=== PATIENT | male | born 1960 | race Caucasian/White ===

== ENCOUNTER 2020-08-08 18:33 | Emergency (ER) | payer OTHER, SELFPAY ==
[2020-08-08 19:15] VITALS: BP 125/68; PULSE 81; RESP 18; TEMP 36.6; O2SAT 97; BMI 35.7
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
[2020-08-08] MEDS: Ketorolac Tromethamine 60 MG/2 ML VIAL IM (20:44)
== END 2020-08-08 21:15 | disposition home or self-care (01) ==
PROVIDERS: Emergency Provider Internal Medicine; PCP Internal Medicine
DX: S13.4XXA Sprain of ligaments of cervical spine, initial encounter (principal); V43.52XA Car driver injured in collision with other type car in traffic accident, initial encounter; Y93.89 Activity, other specified; Y92.414 Local residential or business street as the place of occurrence of the external cause; Y99.9 Unspecified external cause status; I10 Essential (primary) hypertension; E78.00 Pure hypercholesterolemia, unspecified
CPT/HCPCS: 96372; 99284; J1885

== ENCOUNTER 2020-09-17 01:55 | Emergency (ER) | payer OTHER, SELFPAY ==
[2020-09-17 02:09] VITALS: BP 149/70; PULSE 72; RESP 16; TEMP 36.6; O2SAT 98; BMI 35.7
--- NOTE | 2020-09-17 03:01 | ED.GENADULT ---
HPI - General Adult General Chief complaint: General Medical Stated complaint: pain in back left side, swollen Time Seen by Provider: 09/17/20 02:59 Source: patient Mode of arrival: ambulatory History of Present Illness HPI narrative: 60-year-old male who presents with left-sided back pain without radiation into the leg that has been worsening since yesterday and states that it is atraumatic. He denies any bowel or bladder dysfunction and denies any saddle anesthesia symptoms. Patient states that once he gets out of bed and walks for a little while the back pain tends to improve. Otherwise, he denies any fever, chills, nausea, vomiting, diarrhea. Related Data Previous Rx's Medication Instructions Recorded CPAP full face mask small 12 cm #1 ea 07/26/20 humidified air cyclobenzaprine 5 mg PO TID PRN #12 tab 08/08/20 metoprolol succinate 25 mg 25 mg PO DAILY 90 Days #90 tab 08/20/20 tablet,extended release 24 hr naproxen 500 mg tablet,delayed 500 mg PO BID PRN 90 Days #60 tab 08/20/20 release simvastatin 5 mg tablet 5 mg PO BEDTIME 90 Days #90 tab 08/20/20 cyclobenzaprine 10 mg PO BEDTIME PRN #3 tab 09/17/20 ketorolac 10 mg PO Q6H PRN 5 Days #20 tab 09/17/20 Allergies Allergy/AdvReac Type Severity Reaction Status Date / Time No Known Allergies Allergy Unverified 12/16/19 16:11 [No Known Allergies*] Review of Systems Review of Systems: Pertinent positives and negatives as stated in HPI and 10 point review of systems is otherwise negative. [facility] Past Medical History Source: nursing notes reviewed Medical History Carpal tunnel syndrome Diverticulitis Hypercholesterolemia Obesity (BMI 30-39.9) Obstructive sleep apnea hypopnea, severe Social History Social History Advance Directives: No Advance Directives Information Provided: No Physical Exam Vital Signs: Vital Signs: Last Vital Signs Temp 97.9 F 09/17/20 02:09 Pulse 72 09/17/20 02:09 Resp 16 09/17/20 02:09 BP 149/70 H 09/17/20 02:09 Pulse Ox 98 09/17/20 02:09 Body Mass Index 35.7 VITAL SIGNS: Reviewed. GENERAL: Well developed, well nourished, in no acute distress. HEAD: Normocephalic/atraumatic EYES: PERRLA, EOMI OROPHARYNX: no oral lesions noted, posterior pharynx clear LUNGS: Normal breath sounds. No adventitious sounds or accessory muscle use. SpO2<98> CARDIOVASCULAR: Regular rate and rhythm without noted murmurs ABDOMEN: Obese, Soft, mild tenderness at left flank and posterior back, non-distended with bowel sounds, no CVA tenderness NEUROLOGIC: Alert and oriented x 4. Course Course Course Narrative: This is a 60-year-old male with history and clinical presentation most consistent with likely back pain and there is no evidence to suggest diverticulitis, renal colic. Patient will be provided with combination analgesics as well as lidocaine patch and Flexeril and re-evaluated. Of all investigations and on re-evaluation there are no acute findings and patient reports symptomatic improvement of his pain and now is able to move easier. He was discharged and instructed to follow-up with his primary care doctor on Friday morning. Medical Decision Making Lab Data Labs: Lab Results 09/17/20 Range/Units 03:10 Urine Color YELLOW Urine Appearance CLEAR Urine pH 6.0 (5.0-8.0) Ur Specific [place] 1.020 (1.005-1.025) Urine Protein NEG (NEG-TRACE) MG/DL Urine Glucose (UA) NEG (NEG) MG/DL Urine Ketones NEG (NEG) MG/DL Urine Blood NEG (NEG) Urine Nitrite NEG (NEG) Ur Leukocyte Esterase NEG (NEG) Discharge Plan Discharge Clinical Impression: Back pain Patient Disposition: Home, Self-Care Instructions: Back Pain (ED), Lower Back Exercises (ED) Additional Instructions: 1. Tylenol 1000 mg, orally, every 6 hours as needed for pain control. Do not exceed 4000 mg within 24 hours. 2. Lidocaine patch, these are available [id number] and should be placed on area of maximal tenderness as directed on the outside packaging. 3. Please follow-up with your primary care provider in the next 2-3 days for re-evaluation. Return to the ER for acute worsening of symptoms. Prescriptions: New ketorolac 10 mg tablet 10 mg PO Q6H PRN (Reason: pain) 5 Days Qty: 20 RF: 0 cyclobenzaprine 10 mg tablet 10 mg PO BEDTIME PRN (Reason: muscle spasm) Qty: 3 RF: 0 No Action simvastatin 5 mg tablet 5 mg PO BEDTIME 90 Days Qty: 90 RF: 1 metoprolol succinate 25 mg tablet extended release 24 hr 25 mg PO DAILY 90 Days Qty: 90 RF: 1 naproxen [EC-Naproxen] 500 mg tablet,delayed release (DR/EC) 500 mg PO BID PRN (Reason: pain) 90 Days Qty: 60 RF: 0 cyclobenzaprine 5 mg tablet 5 mg PO TID PRN (Reason: muscle spasm) Qty: 12 RF: 0 (DME) CPAP full face mask small 12 cm humidified air See Rx Instructions .ROUTE .MEDSUPPLY Qty: 1 RF: 0 Referrals: Po,Alejandro Beverly MD [Primary Care Provider] - 2 days
[2020-09-17] MEDS: Cyclobenzaprine HCl 10 MG TABLET PO (03:11)
[2020-09-17] MEDS: Acetaminophen 325 MG TABLET 975 MG PO (03:11)
[2020-09-17] MEDS: Ketorolac Tromethamine 15 MG/ML VIAL IM (03:11)
[2020-09-17 03:31] LABS: Glucose Urine UA NEG (NEG); Leukocyte Esterase Urine NEG (NEG); Nitrite Urine NEG (NEG); Urine Blood NEG (NEG); Urine Ketones NEG (NEG); Urine Protein NEG (NEG-TRACE)
[2020-09-17 03:36] LABS: Appearance Urine CLEAR; Color Urine YELLOW
[2020-09-17] MEDS: Lidocaine 4 % Patch ADH..PATCH 1 PATCH TRANSDERMA (03:36)
== END 2020-09-17 03:55 | disposition home or self-care (01) ==
PROVIDERS: Emergency Provider Student in an Organized Health Care Education/Training Program; PCP Internal Medicine
DX: M54.9 Dorsalgia, unspecified (principal)
CPT/HCPCS: 81003; 96372; 99283; 99284; J1885

== ENCOUNTER 2021-02-03 09:47 | Outpatient (REF) | payer OTHER, SELFPAY ==
[2021-02-03 09:56] LABS: MANUAL DIFF FLAG NO
[2021-02-03 10:53] LABS: Basophils Absolute Auto 0.1 X10*3/uL (0.0-0.2); Basophils Percent Auto 0.8 % (0-2); Eosinophils Absolute Auto 0.4 X10*3/uL (0.0-0.4); Hematocrit 43.8 % (42.0-52.0); Hemoglobin 15.2 g/dl (14.0-18.0); Imm Gran Abs Auto 0.02 X10*3/uL (0.00-0.03); Imm Gran Pct Auto 0.3 % (0.0-0.4); Lymphocytes Absolute Auto 1.1 X10*3/uL (1.2-4.9); Lymphocytes Percent Auto 18.2 % (20-40); Mean Corpuscular HGB Conc 34.7 g/dl (31.0-36.0); Mean Corpuscular Hemoglobin 32.3 pg (27.0-33.0); Mean Platelet Volume 10.1 fL (9.4-12.4); Monocytes Absolute Auto 0.5 X10*3/uL (0.1-1.2); Monocytes Percent Auto 8.7 % (2-11); Neutrophils Absolute Auto 3.9 x10*3/uL (2.0-8.3); Platelet Count 231 X10*3/uL (160-400); Red Blood Count 4.71 X10*6/uL (4.60-5.80); Red Cell Distribution Width 12.3 % (11.0-16.0)
[2021-02-03 10:59] LABS: Alanine Aminotransferase 22 U/L (0-40); Albumin Level 4.1 g/dL (3.5-5.0); Alkaline Phosphatase 92 U/L (39-117); Anion Gap 13 (12-20); Aspartate Amino Transferase 18 U/L (5-37); Bilirubin Total 0.9 mg/dL (0.0-1.0); Blood Urea Nitrogen 13 mg/dL (9-16); Calcium 9.1 mg/dL (8.4-10.2); Carbon Dioxide 27 mmol/L (22-29); Chloride 104 mmol/L (96-108); Cholesterol 182 mg/dL; Estimated Glomerular Filt Rate > 60; Glucose Random 93 mg/dL (60-115); HDL Cholesterol 45 mg/dL; LDL Cholesterol Calculated 120 mg/dl; Potassium 4.6 mmol/L (3.3-5.1); Sodium 139 mmol/L (135-145); Total Protein 7.1 g/dL (6.5-8.0); Triglycerides 86 mg/dL
[2021-02-03 11:21] LABS: Free T4 (Free Thyroxine) 0.88 ng/dL (0.71-1.85); Prostate Specific Antigen Scr 2.59 ng/mL (<0.05-4.0); Thyroid Stimulating Hormone 1.23 uIU/mL (0.32-4.0)
[2021-02-05 09:51] LABS: Folate 16.7 ng/mL (> or = 4.0); Vitamin B12 522 pg/mL (200-900)
== END 2021-02-03 09:48 | disposition home or self-care (01) ==
LOC: HO.LAB 09:47
PROVIDERS: PCP Internal Medicine; Visit Provider Internal Medicine
DX: Z12.5 Encounter for screening for malignant neoplasm of prostate (principal); E78.00 Pure hypercholesterolemia, unspecified
CPT/HCPCS: 36415; 80053; 80061; 82607; 82746; 84153; 84439; 84443; 85025

== ENCOUNTER 2021-04-30 13:07 | Outpatient (REF) | payer OTHER, SELFPAY ==
--- NOTE | ~2021-04-30 | XR_ITS ---
EXAMINATION: XR CERVICAL SPINE XR KUB XR LEFT-SIDED RIBS CLINICAL INFORMATION: Unspecified abdominal pain COMPARISON: Cervical spine done on 12/10/2015. TECHNIQUE: 3 views of the cervical spine, single frontal view of the abdomen and pelvis and frontal view of the chest and left hemithoracic rib series were obtained. FINDINGS: CERVICAL SPINE: The heights of the cervical vertebrae are well-maintained. Moderate degenerative multilevel disc disease related changes are noted at C4-C7 vertebral body level, similar to prior study. The C1-C2 alignment is intact. The prespinal soft tissues are unremarkable. Ligamentous nuchae calcification is seen. Visualized lung apices appear clear. Overall, no significant change since prior study dated 12/10/2015. KUB: There is a radiopaque BB marker identified at the left upper quadrant overlying left 10th rib. Nonspecific bowel gas pattern is noted. No abnormal soft tissue mass or calcification is seen. Mild thoracolumbar dextroscoliosis and multilevel degenerative spondylosis related changes are noted within the visualized thoracolumbar spine. CHEST AND LEFT HEMITHORACIC RIBS: Both lung jacobo are symmetrically expanded and appear clear. The cardiac mediastinal silhouette is within normal limit. No evidence of any pleural effusion or pneumothorax. Specifically, left hemithoracic rib series shows no evidence of any displaced fracture or subluxation. The site of the pain as was pointed out by the patient was marked with a cutaneous BB marker corresponding to the posterolateral aspect of the left 10th rib. No underlying suspicious focal lesion. Incidental note is made of degenerative changes the left shoulder. The soft tissues are unremarkable. XR/XR ribs LT min 3V w CXR1V IMPRESSION: 1. The cervical spine appears stable since most recent prior study dated 12/10/2015. 2. The KUB shows no radiographic evidence of radiopaque calculi are abnormal gallbladder distention or dilatation. 3. The radiograph of the chest and left hemithoracic rib shows no evidence of any focal osseous abnormality involving the site of pain which was marked with a cutaneous BB marker corresponding to the left 10th rib. Incidental note is made of degenerative changes at the left shoulder.
== END 2021-04-30 13:08 | disposition home or self-care (01) ==
LOC: HO.XRAY 13:07
PROVIDERS: PCP Internal Medicine; Visit Provider Internal Medicine
DX: R10.9 Unspecified abdominal pain (principal)
CPT/HCPCS: 71101; 72040; 74018

== ENCOUNTER 2022-03-27 07:36 | Outpatient (REF) | payer OTHER, SELFPAY ==
[2022-03-27 07:48] LABS: MANUAL DIFF FLAG NO
[2022-03-27 08:12] LABS: Basophils Absolute Auto 0.1 X10*3/uL (0.0-0.2); Eosinophils Absolute Auto 0.3 X10*3/uL (0.0-0.4); Eosinophils Percent Auto 5.8 % (0-4); Hematocrit 43.8 % (42.0-52.0); Hemoglobin 14.9 g/dl (14.0-18.0); Imm Gran Abs Auto 0.02 X10*3/uL (0.00-0.03); Imm Gran Pct Auto 0.4 % (0.0-0.4); Lymphocytes Absolute Auto 1.1 X10*3/uL (1.2-4.9); Lymphocytes Percent Auto 20.8 % (20-40); Monocytes Absolute Auto 0.4 X10*3/uL (0.1-1.2); Monocytes Percent Auto 8.5 % (2-11); Neutrophils Absolute Auto 3.3 x10*3/uL (2.0-8.3); Neutrophils Percent Auto 63.5 % (45-73); Platelet Count 213 X10*3/uL (160-400); Red Blood Count 4.66 X10*6/uL (4.60-5.80); Red Cell Distribution Width 12.8 % (11.0-16.0); White Blood Count 5.2 X10*3/uL (4.8-10.8)
[2022-03-27 09:17] LABS: Alanine Aminotransferase 22 U/L (0-40); Albumin Level 3.9 g/dL (3.5-5.0); Alkaline Phosphatase 98 U/L (39-117); Anion Gap 9 (12-20); Aspartate Amino Transferase 14 U/L (5-37); Bilirubin Total 0.6 mg/dL (0.0-1.0); Blood Urea Nitrogen 18 mg/dL (9-16); Carbon Dioxide 28 mmol/L (22-29); Chloride 106 mmol/L (96-108); Cholesterol 199 mg/dL; Estimated Glomerular Filt Rate > 60; Free T4 (Free Thyroxine) 0.89 ng/dL (0.71-1.85); Glucose Random 98 mg/dL (60-115); HDL Cholesterol 40 mg/dL; LDL Cholesterol Calculated 138 mg/dl; Potassium 4.2 mmol/L (3.3-5.1); Prostate Specific Antigen Scr 2.05 ng/mL (<0.05-4.0); Sodium 139 mmol/L (135-145); Thyroid Stimulating Hormone 1.69 uIU/mL (0.32-4.0); Total Protein 6.7 g/dL (6.5-8.0); Triglycerides 109 mg/dL
[2022-03-27 09:28] LABS: Folate 13.3 ng/mL (> or = 4.0); Vitamin B12 419 pg/mL (200-900)
== END 2022-03-27 07:37 | disposition home or self-care (01) ==
LOC: HO.LAB 07:36
PROVIDERS: PCP Internal Medicine; Visit Provider Internal Medicine
DX: Z12.5 Encounter for screening for malignant neoplasm of prostate (principal); I10 Essential (primary) hypertension; E78.00 Pure hypercholesterolemia, unspecified
CPT/HCPCS: 36415; 80053; 80061; 82607; 82746; 84153; 84439; 84443; 85025

== ENCOUNTER → 2022-04-23 08:50 | Outpatient (REF) | payer OTHER, SELFPAY ==
--- NOTE | 2022-04-23 08:53 | CA_ITS ---
Acquisition Time: 2022-04-23 08:59:22 Total Exercise Time: 00:07:30 Test Indications: R07.9 Chest Pain Medications: See H Protocol: LUIS Max HR: 169 BPM 104% of Pred: 161 BPM Max BP: 184/078 mmHG Max Work Load: 9.1 METS Exercise stress test with exercise 7 min 30 sec of Luis protocol, achieving 104% MPHR, without anginal symptoms, without arrythmia, with normotensive response to exercise, without EKG changes meeting criteria for ischemia. Test reviewed with Dr Jackman. Referred By: Alejandro Villarreal Overread By: MARTINE OSEI
== END ==
LOC: HO.CARD 08:50
PROVIDERS: PCP Internal Medicine; Visit Provider Internal Medicine
DX: R07.89 Other chest pain (principal)
CPT/HCPCS: 93017

== ENCOUNTER 2022-09-04 08:21 | Day surgery (SDC) | payer OTHER, SELFPAY ==
--- NOTE | 2022-09-03 13:53 | HO.ANESPROP2 ---
Documented by User: Cyndi Keller NP 09/03/22 13:55 HPI - Anesthesia Eval Consult details Narrative: 62yo M for Colonoscopy PMFSH Active Problems Active Problems: All Active Problems (Updated 08/12/22 @ 16:23 by Alejandro Villarreal MD) Plantar fasciitis of right foot (Acute) Tinea pedis (Acute) Chest heaviness (Acute) Family history of colon cancer (Acute) Radicular pain in left arm (Acute) Left flank pain (Acute) Annual physical exam (Acute) Hypertension (Acute) Hypercholesterolemia (Acute) Obstructive sleep apnea hypopnea, severe (Acute) Obesity (BMI 30-39.9) (Acute) Past Medical History Medical History (Updated 09/04/22 @ 11:09 by Татьяна Johnston, RN) Back pain Carpal tunnel syndrome Diverticulitis HTN (hypertension) Hypercholesterolemia Obesity (BMI 30-39.9) Obstructive sleep apnea hypopnea, severe Family History Family History (Updated 02/11/22 @ 15:36 by Alejandro Villarreal MD) Father Colon cancer CAD (coronary artery disease) Surgical History Surgical History (Updated 09/04/22 @ 11:09 by Татьяна Johnston RN) Hx of colonoscopy Social History Social History (Updated 02/09/21 @ 16:30 by Alejandro Villarreal MD) Housing: House Alcohol intake: never Patient Tobacco Use Status: Never used Tobacco e-Cigarette/Vaping Use: Never Used Second Hand Smoke Exposure: No Use of substances other than those prescribed or required for medical reasons: No Are you DNR?: No Advance Directives: No Advance Directives Information Provided: Yes service: No Current occupational status: employed Current occupational exposures/hazards: No Cognitive needs: No Hearing needs: No Vision needs: No Meds Allergies Allergy/AdvReac Type Severity Reaction Status Date / Time No Known Allergies Allergy Verified 09/04/22 11:09 [No Known Allergies*] Exam Exam Date and Time: September 03, 2022 1353 Pertinent Lab Results Pertinent Lab Results: Laboratory Tests 03/27/22 03/27/22 07:46 07:46 WBC 5.2 Hgb 14.9 Hct 43.8 Plt Count 213 Sodium 139 Potassium 4.2 Chloride 106 Carbon Dioxide 28 BUN 18 H Creatinine 0.85 Narrative Narrative: Exercise Stress 03/2022 Protocol: SEAN ? Max HR: 169 BPM? 104% of? Pred: 161 BPM Max BP: 184/078 mmHG Max Work Load: 9.1 METS ? Exercise stress test with exercise 7 min 30 sec of Sean protocol, achieving ?104% MPHR, without anginal symptoms, without arrythmia, with normotensive ?response to exercise, without EKG changes meeting criteria for ischemia. Test ?reviewed with Dr Jackman. Assessment and Plan Assessment Anesthesia Assessment: Chart Reviewed Documented by User: Sara Kothari MD 09/04/22 12:20 HPI - Anesthesia Eval Consult details Narrative: 62yo M for Colonoscopy screening [facility] Past Medical History Medical History (Updated 09/04/22 @ 11:09 by Татьяна Johnston RN) Back pain Carpal tunnel syndrome Diverticulitis HTN (hypertension) Hypercholesterolemia Obesity (BMI 30-39.9) Obstructive sleep apnea hypopnea, severe Family History Family History (Updated 02/11/22 @ 15:36 by Alejandro Villarreal MD) Father Colon cancer CAD (coronary artery disease) Family history of problems with anesthesia: No Surgical History Surgical History (Updated 09/04/22 @ 11:09 by Татьяна Johnston RN) Hx of colonoscopy History of Problems with Anesthesia: No Social History Social History (Updated 02/09/21 @ 16:30 by Alejandro Villarreal MD) Housing: House Alcohol intake: never Patient Tobacco Use Status: Never used Tobacco e-Cigarette/Vaping Use: Never Used Second Hand Smoke Exposure: No Use of substances other than those prescribed or required for medical reasons: No Are you DNR?: No Advance Directives: No Advance Directives Information Provided: Yes service: No Current occupational status: employed Current occupational exposures/hazards: No Cognitive needs: No Hearing needs: No Vision needs: No Meds Allergies Allergy/AdvReac Type Severity Reaction Status Date / Time No Known Allergies Allergy Verified 09/04/22 11:09 [No Known Allergies*] Exam Airway Mallampati Class: III TM Dist: <=3cm Neck ROM: Full Loose/Missing/Broken Teeth: No Heart: rr Lungs: cta Assessment and Plan Assessment Anesthesia Assessment: Anesthesia Plan Discussed Final Anesthetic Review Family History of Problems with Anesthesia: No History of Problems with Anesthesia: No NPO: Yes ASA Class: III Final Preanesthetic Review: No Changes in Pt Med Stat, Meds/Allgs Chart Reviewed, Consent Obtained/Reviewed and Anes Risks/Benef Reviewed Patient Risk: Intermediate Procedure Risk: Low Anesthetic Plan Anesthetic Plan: MAC: Disposition: Standard PACU
[2022-09-04 11:10] VITALS: BMI 35.9
[2022-09-04 11:12] VITALS: BP 135/83; PULSE 70; RESP 15; TEMP 36.5; O2SAT 96
[2022-09-04] MEDS: Lactated Ringers 1,000 ML 100 ML IVCONT (11:23)
--- NOTE | 2022-09-04 12:37 | P.BOP_ITS ---
Brief Operative Note Date of Service: 09/04/22 Pre-op diagnosis: Screening Post-op diagnosis: other (Polyp) Procedure: Colonoscopy to the cecum and TI with Bx/removal of polyp Surgeon: Quinton Lacey Anesthesia: MAC Was an Hot Wort Settler used for this Procedure?: No Estimated blood loss (mL): 2.0 Pathology: other (A. Polyp at 15cm) Condition: stable Disposition: PACU
[2022-09-04 12:41] VITALS: BP 133/73; PULSE 75; RESP 16; TEMP 36.6; O2SAT 96
[2022-09-04 12:56] VITALS: BP 142/97; PULSE 60; RESP 14; O2SAT 97
[2022-09-04 13:08] VITALS: BP 142/88; PULSE 62; RESP 13; TEMP 36.4; O2SAT 99
--- NOTE | 2022-09-04 13:28 | OP_ITS ---
DATE OF SERVICE: 09/04/2022 SURGEON: Quinton Lacey MD INDICATIONS: The patient presents for evaluation of colorectal cancer screening and family history of colon cancer. Full consent has been obtained from him for this, including risks of bleeding and perforation. PREOPERATIVE DIAGNOSIS: Colorectal cancer screening. POSTOPERATIVE DIAGNOSIS: Colorectal cancer screening, small colon polyp, diverticulosis and internal hemorrhoids. PROCEDURE PERFORMED: Colonoscopy to cecum and terminal ileum with biopsy and removal of polyp. ESTIMATED BLOOD LOSS: COMPLICATIONS: ANESTHESIA: Monitored anesthesia care. ASSISTANTS: SPECIMENS: DESCRIPTION OF PROCEDURE: The patient was placed in the left lateral decubitus position. The digital rectal exam revealed no abnormalities. The [employer] video pediatric colonoscope was entered into the rectum advanced easily to the cecum. Once in the cecum I did identify normal-appearing cecal pouch with appendiceal orifice and a normal-appearing ileocecal valve. The terminal ileum was cannulated and appeared normal. The scope was withdrawn back in the colon. The entire cecum and ileocecal valve appeared normal. The scope was slowly withdrawn assessing all mucosal surfaces carefully. Preparation was excellent. At 15 cm was a flat approximately 3 or 4 mm polyp, which was biopsied and completely removed with cold biopsy forceps. I did not visualize any other polyps, colitis, nor angiodysplasia. There was a mild amount of sigmoid diverticulosis. In the rectum, scope was retroflexed visualizing internal hemorrhoids, but no other pathology. The rectal mucosa appeared normal. Scope was straightened and withdrawn the patient. He tolerated the procedure well and was returned to recovery area in stable condition. IMPRESSION: 1. Small colon polyp. 2. Diverticulosis. 3. Internal hemorrhoids. PLAN: The results of the biopsy will be checked. I would recommend a repeat colonoscopy in 5 years for further screening and surveillance given his family history of colon cancer. He will otherwise see me on a p.r.n. basis. Quinton Lacey MD RMImmanuel/ANNE MARIE / [id number] BELLA
== END 2022-09-04 13:30 | disposition home or self-care (01) ==
PROVIDERS: PCP Internal Medicine; Visit Provider Internal Medicine
PROC: 0DJD8ZZ Inspection of Lower Intestinal Tract, Via Natural or Artificial Opening Endoscopic (ICD-10-PCS; CPT 45378; principal; 2022-09-04 10:40)
DX: Z12.11 Encounter for screening for malignant neoplasm of colon (principal); Z80.0 Family history of malignant neoplasm of digestive organs; Z80.42 Family history of malignant neoplasm of prostate; K63.5 Polyp of colon; K57.30 Diverticulosis of large intestine without perforation or abscess without bleeding; K64.8 Other hemorrhoids; I10 Essential (primary) hypertension; E78.00 Pure hypercholesterolemia, unspecified; G47.33 Obstructive sleep apnea (adult) (pediatric); Z99.89 Dependence on other enabling machines and devices; Z79.899 Other long term (current) drug therapy
CPT/HCPCS: 45380; 88305

== ENCOUNTER 2023-02-07 07:29 | Outpatient (REF) | payer OTHER, SELFPAY ==
[2023-02-07 07:39] LABS: MANUAL DIFF FLAG NO
[2023-02-07 07:49] LABS: Basophils Percent Auto 0.8 % (0-2); Eosinophils Absolute Auto 0.3 X10*3/uL (0.0-0.4); Eosinophils Percent Auto 5.7 % (0-4); Hematocrit 44.1 % (42.0-52.0); Imm Gran Abs Auto 0.02 X10*3/uL (0.00-0.03); Imm Gran Pct Auto 0.4 % (0.0-0.4); Lymphocytes Absolute Auto 1.2 X10*3/uL (1.2-4.9); Lymphocytes Percent Auto 23.7 % (20-40); Mean Corpuscular Hemoglobin 31.3 pg (27.0-33.0); Mean Corpuscular Volume 92.1 fL (80.0-98.0); Mean Platelet Volume 9.4 fL (9.4-12.4); Monocytes Absolute Auto 0.5 X10*3/uL (0.1-1.2); Monocytes Percent Auto 9.8 % (2-11); Neutrophils Percent Auto 59.6 % (45-73); Platelet Count 243 X10*3/uL (160-400); Red Blood Count 4.79 X10*6/uL (4.60-5.80); Red Cell Distribution Width 12.6 % (11.0-16.0); White Blood Count 5.1 X10*3/uL (4.8-10.8)
[2023-02-07 08:19] LABS: Alanine Aminotransferase 25 U/L (0-40); Albumin Level 4.1 g/dL (3.5-5.0); Alkaline Phosphatase 94 U/L (39-117); Anion Gap 9 (12-20); Aspartate Amino Transferase 17 U/L (5-37); Bilirubin Total 0.8 mg/dL (0.0-1.0); Blood Urea Nitrogen 19 mg/dL (9-16); Calcium 8.9 mg/dL (8.4-10.2); Carbon Dioxide 29 mmol/L (22-29); Chloride 106 mmol/L (96-108); Cholesterol 165 mg/dL (<200); Estimated Glomerular Filt Rate > 60; Glucose Random 88 mg/dL (60-115); HDL Cholesterol 37 mg/dL (>40); LDL Cholesterol Calculated 113 mg/dL (<100); Potassium 3.9 mmol/L (3.3-5.1); Sodium 140 mmol/L (135-145); Total Protein 7.6 g/dL (6.5-8.0); Triglycerides 77 mg/dL (<150)
[2023-02-07 08:39] LABS: Free T4 (Free Thyroxine) 0.87 ng/dL (0.71-1.85); Thyroid Stimulating Hormone 1.07 uIU/mL (0.32-4.0)
[2023-02-07 08:45] LABS: Folate 12.7 ng/mL (> or = 4.0); Prostate Specific Antigen Scr 3.79 ng/mL (<0.05-4.0); Vitamin B12 468 pg/mL (200-900)
== END 2023-02-07 07:30 | disposition home or self-care (01) ==
LOC: HO.LAB 07:29
PROVIDERS: PCP Internal Medicine; Visit Provider Internal Medicine
DX: Z12.5 Encounter for screening for malignant neoplasm of prostate (principal); E78.00 Pure hypercholesterolemia, unspecified
CPT/HCPCS: 36415; 80053; 80061; 82607; 82746; 84153; 84439; 84443; 85025

== ENCOUNTER 2023-02-13 14:59 | Outpatient (AMB) | payer OTHER, SELFPAY ==
[2023-02-13 15:05] VITALS: BP 150/90; PULSE 80; O2SAT 98; BMI 36.3
--- NOTE | 2023-02-13 15:05 | A.OFFPC_ITS ---
Vital Signs 02/13/23 15:05 02/13/23 15:27 Height 5 ft 5 in Weight 218 lb BMI 36.3 BP 150/90 H 130/70 Blood Pressure Location Lt brachial Lt brachial Position Sitting Sitting Pulse 80 Pulse Source Pulse Oximeter Pulse Oximetry (%) 98 Oxygen Delivery Method Room Air Intake Visit Reasons: Annual Exam Freight Solicitor: Not Required per policy Accompanied by: Self / Same As Patient Allergies No Known Allergies [No Known Allergies*] Allergy (Verified 02/13/23 15:05) Medication List - Last Reconciled 02/13/23 by Alejandro Villarreal MD [CPAP full face mask small 12 cm humidified air As directed] ketorolac 10 mg PO Q6H PRN 5 days metoprolol succinate ER 25 mg PO DAILY 90 days simvastatin 5 mg PO BEDTIME 90 days Tobacco use date assessed: 08/12/22 Dental Screening Dental Screen Date: 02/13/23 Did you have a dental visit in the last 12 months?: Yes Did you have a dental problem in the last 6 months where you did not have access to dental care?: No Was dental information given to patient?: Patient has dentist HPI Annual Exam HPI Details 62-year-old obese male with hypertension hypercholesterolemia obstructive sleep apnea coming in for physical exam. Last seen in July 2022. Colonoscopy is up-to-date [facility] Medical History Back pain HTN (hypertension) Diverticulitis Hypercholesterolemia Obstructive sleep apnea hypopnea, severe Carpal tunnel syndrome Obesity (BMI 30-39.9) Surgical History Hx of colonoscopy Family History (Updated 02/13/23 @ 15:29 by Alejandro Villarreal MD) Father Colon cancer CAD (coronary artery disease) Paternal Aunt Colon cancer Social History Housing: House Alcohol intake: never Patient Tobacco Use Status: Never used Tobacco e-Cigarette/Vaping Use: Never Used Second Hand Smoke Exposure: No service: No Current occupational status: employed Current occupational exposures/hazards: No Cognitive needs: No Hearing needs: No Vision needs: No Questionnaire PHQ-9 Over the last 2 weeks, how often have you been bothered by any of the following problems? 1. Little interest or pleasure in doing things: not at all 2. Feeling down, depressed, or hopeless: not at all 3. Trouble falling or staying asleep, or sleeping too much: not at all 4. Feeling tired or having little energy: not at all 5. Poor appetite or overeating: not at all 6. Feeling bad about yourself - or that you are a failure or have let yourself or your family down: not at all 7. Trouble concentrating on things, such as reading the newspaper or watching television: not at all 8. Moving or speaking so slowly that other people could have noticed. Or the opposite - being so fidgety or restless that you have been moving around a lot more than usual: not at all 9. Thoughts that you would be better off or of hurting yourself in some way: not at all Total score: 0 Depression Screening Interpretation: Negative Depression Screening Done: Yes Source: Developed by Drs. Quinton Young, Estelle Carrillo, Raimundo Hunter and colleagues, with an educational debby from [employer]. Thrive Questionnaire Date Thrive assessed: 08/12/22 AUDIT C Alcohol Use Questionnaire (AUDIT-C) 1. How often do you have a drink containing alcohol?: Never 2. How many drinks containing alcohol do you have on a typical day when you are drinking?: 1 or 2 3. How often do you have six or more drinks on one occasion?: Never Total Score: 0 ZENY-7 AMB Questionnaire ZENY-7 Date ZENY - 7 assessed: 08/12/22 Source: Developed by Drs. Quinton Young, Estelle Carrillo, Raimundo Hunter and colleagues, with an educational debby from [employer]. Review of Systems Const Denies poor appetite and Denies weakness Eyes Denies no additional complaints ENT Reports Normal hearing present, Denies dizziness, Denies nasal congestion, Denies tinnitus and Denies sore throat Card Denies chest pain, Denies syncope, Denies rapid heart rate and Denies dyspnea Resp Denies cough and Denies dyspnea GI Denies change in stool character, Reports constipation, Denies diarrhea, Denies nausea and Denies vomiting Denies dysuria and Denies urinary frequency Neuro Reports Normal hearing present, Denies confusion, Denies dizziness, Denies syncope and Denies weakness Psych Denies confusion Physical exam (Primary Care) Vital Signs: Last Vital Signs Pulse 80 02/13/23 15:05 BP 150/90 H 02/13/23 15:05 Pulse Ox 98 02/13/23 15:05 Oxygen Delivery Method Room Air 02/13/23 15:05 BMI result Body Mass Index 36.3 Tobacco/Smoking Status: Tobacco use Status Tobacco use date assessed 08/12/22 02/13/23 15:06 Patient Tobacco Use Status Never used Tobacco 02/13/23 15:06 e-Cigarette/Vaping Use Never Used 02/13/23 15:06 PHQ-9: PHQ-9 Score PHQ-9: Total score 0 02/13/23 15:06 Depression Screening Interpretation: Negative Thrive Assessment: Date of Thrive Assessment Date Thrive assessed 08/12/22 02/13/23 15:06 Const General: No confusion Orientation/consciousness: No confusion HENMT Head: Yes normocephalic Ears: external ears normal and TM's normal bilaterally Face and sinus: Yes normal facial exam Mouth: moist mucous membranes Throat: Yes tonsils normal Eyes Conjunctivae: conjunctivae normal Pupils: Equal, round and reactive pupils present and Pupil accommodation reflex normal Direct Ophthalmoscopy: normal light reflex Neck Neck: No lymphadenopathy Thyroid: Thyroid normal Chest Chest palpation & inspection: normal inspection of the chest Resp Effort & Inspection: normal respiratory effort and no audible wheezes Auscultation: clear to auscultation bilaterally, no crackles, no wheezes and lung sounds not diminished Cardio Rate: regular rate Rhythm: regular rhythm Peripheral pulses: radial pulses present and dorsalis pedis present GI Palpation (GI): no masses Auscultation: normal bowel sounds and normoactive bowel sounds Rectal Exam - Male: Yes deferred Skin General skin exam: no rashes or lesions noted Rashes: no rashes Neuro General: No confusion Cranial nerves: Yes Equal, round and reactive pupils present and Yes Normal hearing present Cognition (Neuro): normal cognition Gait exam (Neuro): Normal gait present Motor exam (neuro): 5/5 motor strength present throughout Deep tendon reflexes (DTR's): Right brachioradialis reflex intensity grade: 2+, Left brachioradialis reflex intensity grade: 2+, Right patellar reflex intensity grade: 2+ and Left patellar reflex intensity grade: 2+ Extrem General: No edema Assessment and Plan Assessment & Plan (1) Annual physical exam: Code(s): Z00.00 - Encounter for general adult medical examination without abnormal findings (2) Hypertension: Code(s): I10 - Essential (primary) hypertension Plan: Continue with blood pressure medication. Decrease salt intake and exercise patient takes metoprolol 25 mg once a day (3) Hypercholesterolemia: Code(s): E78.00 - Pure hypercholesterolemia, unspecified Plan: Avoid fried foods, chicken skin, eggs, butter margarine, pastries and meat. Be it pork or beef they have a lot of cholesterol LDL goal of less than 130 and tr iglyceride of less than 150. Patient on simvastatin 5 mg once a day (4) Obstructive sleep apnea hypopnea, severe: Comment: On the CPAP and uses Q night > 4 hours and benefits from this Code(s): G47.33 - Obstructive sleep apnea (adult) (pediatric) Plan: Continue with CPAP more than 4 hours a night and benefits from the (5) Obesity (BMI 30-39.9): Code(s): E66.9 - Obesity, unspecified Plan: Diet and exercise (6) Family history of colon cancer: Code(s): Z80.0 - Family history of malignant neoplasm of digestive organs Plan: August 2022 colonoscopy hyperplastic but because of family history every 5 years (7) Tinea pedis: Code(s): B35.3 - Tinea pedis (8) Onychomycosis: Code(s): B35.1 - Tinea unguium Orders: Orders Liver Panel 1 Month B35.1 - Tinea unguium, R79.89 - Other specified abnormal findings of blood chemistry Medications: New terbinafine HCl 250 mg PO DAILY 12 weeks 84 tabs 1RF B35.1 - Tinea unguium terbinafine HCl 250 mg PO DAILY 12 weeks 84 tabs 0RF B35.1 - Tinea unguium miconazole nitrate 2% (Zeasorb AF) 1 appl topical BID 85 grams 4RF B35.3 - Tin ea pedis Refilled metoprolol succinate ER 25 mg PO DAILY 90 days 90 tabs 3RF I10 - Essential (primary) hypertension simvastatin 5 mg PO BEDTIME 90 days 90 tabs 3RF E78.00 - Pure hypercholesterolemia, unspecified ketorolac 10 mg PO Q6H PRN 20 tabs 3RF pain 5 days R10.9 - Unspecified abdominal pain Coding Level of Care Code Est Pt Prev Care 40-64y(67091) Diagnoses Annual physical exam Z00.00 Hypertension I10 Hypercholesterolemia E78.00 Obstructive sleep apnea hypopnea, severe G47.33 Obesity (BMI 30-39.9) E66.9 Family history of colon cancer Z80.0 Tinea pedis B35.3 Onychomycosis B35.1
[2023-02-13 15:27] VITALS: BP 130/70
== END 2023-02-13 16:19 | disposition home or self-care (01) ==
PROVIDERS: Visit Provider Internal Medicine
DX: Z00.00 Encounter for general adult medical examination without abnormal findings (principal); I10 Essential (primary) hypertension; E78.00 Pure hypercholesterolemia, unspecified; G47.33 Obstructive sleep apnea (adult) (pediatric); E66.9 Obesity, unspecified; Z80.0 Family history of malignant neoplasm of digestive organs; B35.3 Tinea pedis; B35.1 Tinea unguium; Z68.36 Body mass index [BMI] 36.0-36.9, adult
CPT/HCPCS: 99396

== ENCOUNTER 2023-05-16 15:46 | Outpatient (AMB) | payer OTHER, SELFPAY ==
[2023-05-16 15:52] VITALS: BP 130/88; PULSE 75; O2SAT 96; BMI 36.6
--- NOTE | 2023-05-16 15:52 | A.OFFPC_ITS ---
Vital Signs 05/16/23 15:52 Height 5 ft 5 in Weight 220 lb 0.4 oz BMI 36.6 BP 130/88 Blood Pressure Location Lt brachial Position Sitting Pulse 75 Pulse Source Pulse Oximeter Pulse Oximetry (%) 96 Oxygen Delivery Method Room Air Intake Visit Reasons: 3 month f/u Intake Note: Patient is here to follow up on 3 months Pollution Control Engineer Required: No Allergies No Known Allergies [No Known Allergies*] Allergy (Verified 02/13/23 15:05) Tobacco use date assessed: 05/16/23 Dental Screening Dental Screen Date: 05/16/23 Did you have a dental visit in the last 12 months?: Yes Did you have a dental problem in the last 6 months where you did not have access to dental care?: No Was dental information given to patient?: Patient has dentist HPI 3 month f/u HPI Details 62-year-old obese male with hypertension hypercholesterolemia obstructive sleep apnea coming in for follow-up last seen for physical in January 2023. [facility] Medical History Back pain HTN (hypertension) Diverticulitis Hypercholesterolemia Obstructive sleep apnea hypopnea, severe Carpal tunnel syndrome Obesity (BMI 30-39.9) Surgical History Hx of colonoscopy Family History (Updated 02/13/23 @ 15:29 by Alejandro Villarreal MD) Father Colon cancer CAD (coronary artery disease) Paternal Aunt Colon cancer Social History Housing: House Alcohol intake: never Patient Tobacco Use Status: Never used Tobacco e-Cigarette/Vaping Use: Never Used Second Hand Smoke Exposure: No service: No Current occupational status: employed Current occupational exposures/hazards: No Cognitive needs: No Hearing needs: No Vision needs: No Questionnaire Thrive Questionnaire Date Thrive assessed: 05/16/23 I am a: Patient What is your living situation today?: I have a steady place to live Within the past 12 months, did the food you bought not last and you didn't have the money to get more?: Never true Within the past 12 months, did you worry whether your food would run out before you got money to buy more?: Never true Do you have trouble paying for medicines?: No Do you have trouble getting transportation to medical appointments?: No Do you have trouble paying your heating and electricity bill?: No Do you have trouble taking care of your child, family member or friend?: No Do you have trouble with day-to-day activities such as bathing, preparing meals, shopping, managing finances, etc.?: No Are you currently unemployed and looking for a job?: No Are you interested in more education?: No Please select the resources that you would like help with: None THRIVE Score: 0 AUDIT C Alcohol Use Questionnaire (AUDIT-C) 1. How often do you have a drink containing alcohol?: Never 2. How many drinks containing alcohol do you have on a typical day when you are drinking?: 1 or 2 3. How often do you have six or more drinks on one occasion?: Never Total Score: 0 ZENY-7 AMB Questionnaire ZENY-7 Date ZENY - 7 assessed: 05/16/23 Source: Developed by Drs. Quinton Young, Estelle Carrillo, Raimundo Hunter and colleagues, with an educational debby from [employer]. Physical exam (Primary Care) Vital Signs: Last Vital Signs Pulse 75 05/16/23 15:52 BP 130/88 05/16/23 15:52 Pulse Ox 96 05/16/23 15:52 Oxygen Delivery Method Room Air 05/16/23 15:52 BMI result Body Mass Index 36.6 Tobacco/Smoking Status: Tobacco use Status Tobacco use date assessed 05/16/23 05/16/23 15:53 Patient Tobacco Use Status Never used Tobacco 05/16/23 15:53 e-Cigarette/Vaping Use Never Used 05/16/23 15:53 Thrive Assessment: Date of Thrive Assessment Date Thrive assessed 05/16/23 05/16/23 15:53 Const General: alert; No acute distress Eyes Conjunctivae: conjunctivae normal Resp Auscultation: clear to auscultation bilaterally Cardio Rate: regular rate Rhythm: regular rhythm GI Inspection: Yes normal to inspection Extrem General: Yes normal to inspection and No edema Assessment and Plan Assessment & Plan (1) Obesity (BMI 30-39.9): Code(s): E66.9 - Obesity, unspecified Plan: Diet and exercise with the patient that now that patient is stable with blood pressure and cholesterol we need him to lose the weight. Discussed about ways to lose weight with medication but would like to do with more naturally. Eat healthy keep active and advised to get the weight down even for just a small 1 but down. (2) Obstructive sleep apnea hypopnea, severe: Comment: On the CPAP and uses Q night > 4 hours and benefits from this Code(s): G47.33 - Obstructive sleep apnea (adult) (pediatric) Plan: Continue to use the CPAP more than 4 hours a night and benefits from this (3) Hypercholesterolemia: Code(s): E78.00 - Pure hypercholesterolemia, unspecified Plan: Avoid fried foods, chicken skin, eggs, butter margarine, pastries and meat. Be it pork or beef they have a lot of cholesterol LDL goal of less than 130 and triglyceride of less than 150. Patient is on simvastatin 5 mg once a day (4) Hypertension: Code(s): I10 - Essential (primary) hypertension Plan: Continue with blood pressure medication. Decrease salt intake and exercise metoprolol 25 mg once a day Medications: Refilled terbinafine HCl 250 mg PO DAILY 12 weeks 84 tabs 1RF B35.1 - Tinea unguium Coding Level of Care Code Est Pt Level 4 (91634) Diagnoses Obesity (BMI 30-39.9) E66.9 Obstructive sleep apnea hypopnea, severe G47.33 Hypercholesterolemia E78.00 Hypertension I10
== END 2023-05-16 16:23 | disposition home or self-care (01) ==
PROVIDERS: PCP Internal Medicine; Visit Provider Internal Medicine
DX: G47.33 Obstructive sleep apnea (adult) (pediatric) (principal); E78.00 Pure hypercholesterolemia, unspecified; E66.9 Obesity, unspecified; Z68.36 Body mass index [BMI] 36.0-36.9, adult; I10 Essential (primary) hypertension
CPT/HCPCS: 99214

== ENCOUNTER 2023-08-15 05:59 | Outpatient (REF) | payer OTHER, SELFPAY ==
[2023-08-15 08:45] LABS: Alanine Aminotransferase 28 U/L (0-40); Albumin Level 3.8 g/dL (3.5-5.0); Alkaline Phosphatase 79 U/L (39-117); Aspartate Amino Transferase 18 U/L (5-37); Bilirubin Direct 0.2 mg/dL (0.0-0.5); Bilirubin Total 0.5 mg/dL (0.0-1.0); Total Protein 6.8 g/dL (6.5-8.0)
== END 2023-08-15 06:00 | disposition home or self-care (01) ==
LOC: HO.LAB 05:59
PROVIDERS: PCP Internal Medicine; Visit Provider Internal Medicine
DX: R79.89 Other specified abnormal findings of blood chemistry (principal); B35.1 Tinea unguium
CPT/HCPCS: 36415; 80076

== ENCOUNTER 2023-08-19 15:59 | Outpatient (AMB) | payer OTHER, SELFPAY ==
[2023-08-19 16:05] VITALS: BP 160/90; PULSE 75; O2SAT 99; BMI 37.1
--- NOTE | 2023-08-19 16:05 | MHC.PC.OV ---
Vital Signs 08/19/23 16:05 08/19/23 16:29 Height 5 ft 5 in Weight 223 lb BMI 37.1 BP 160/90 H 132/80 Blood Pressure Location Lt brachial Lt brachial Position Sitting Sitting Pulse 75 Pulse Source Pulse Oximeter Pulse Oximetry (%) 99 Oxygen Delivery Method Room Air Intake Visit Reasons: 3mth f/u Medical Scientist Required: No Occupational Health Physiotherapist: Not Required per policy Accompanied by: Self / Same As Patient Allergies No Known Allergies [No Known Allergies*] Allergy (Verified 08/19/23 16:05) Tobacco use date assessed: 05/16/23 Dental Screening Dental Screen Date: 05/16/23 HPI 3mth f/u HPI Details 63-year-old obese male with a history of obstructive sleep apnea hypercholesterolemia hypertension last seen in May 2023. Patient is here for follow-up colonoscopy is up-to-date August 2022. L foot - stepped on a glass and was able to take it out but left with a white tender thickened skin ? foreign body PFSH Medical History Back pain HTN (hypertension) Diverticulitis Hypercholesterolemia Obstructive sleep apnea hypopnea, severe Carpal tunnel syndrome Obesity (BMI 30-39.9) Surgical History Hx of colonoscopy Family History (Updated 02/13/23 @ 15:29 by Alejandro Villarreal MD) Father Colon cancer CAD (coronary artery disease) Paternal Aunt Colon cancer Social History Housing: House Alcohol intake: never Patient Tobacco Use Status: Never used Tobacco e-Cigarette/Vaping Use: Never Used Second Hand Smoke Exposure: No service: No Current occupational status: employed Current occupational exposures/hazards: No Cognitive needs: No Hearing needs: No Vision needs: No Questionnaire PHQ-9 Over the last 2 weeks, how often have you been bothered by any of the following problems? 1. Little interest or pleasure in doing things: not at all 2. Feeling down, depressed, or hopeless: not at all 3. Trouble falling or staying asleep, or sleeping too much: not at all 4. Feeling tired or having little energy: not at all 5. Poor appetite or overeating: not at all 6. Feeling bad about yourself - or that you are a failure or have let yourself or your family down: not at all 7. Trouble concentrating on things, such as reading the newspaper or watching television: not at all 8. Moving or speaking so slowly that other people could have noticed. Or the opposite - being so fidgety or restless that you have been moving around a lot more than usual: not at all 9. Thoughts that you would be better off or of hurting yourself in some way: not at all Total score: 0 Depression Screening Interpretation: Negative Depression Screening Done: Yes Source: Developed by Drs. Quinton Young, Estelle Carrillo, Raimundo Hunter and colleagues, with an educational debby from [employer]. Thrive Questionnaire Date Thrive assessed: 05/16/23 ZENY-7 AMB Questionnaire ZENY-7 Date ZENY - 7 assessed: 05/16/23 Source: Developed by Drs. Quinton Young, Estelle Carrillo, Raimundo Hunter and colleagues, with an educational debby from [employer]. Physical exam (Primary Care) Vital Signs: Last Vital Signs Pulse 75 08/19/23 16:05 BP 132/80 08/19/23 16:29 Pulse Ox 99 08/19/23 16:05 Oxygen Delivery Method Room Air 08/19/23 16:05 BMI result Body Mass Index 37.1 Tobacco/Smoking Status: Tobacco use Status Tobacco use date assessed 05/16/23 08/19/23 16:06 Patient Tobacco Use Status Never used Tobacco 08/19/23 16:06 e-Cigarette/Vaping Use Never Used 08/19/23 16:06 PHQ-9: PHQ-9 Score PHQ-9: Total score 0 08/19/23 16:19 Depression Screening Interpretation: Negative Thrive Assessment: Date of Thrive Assessment Date Thrive assessed 05/16/23 08/19/23 16:06 Const General: alert; No acute distress Eyes Conjunctivae: conjunctivae normal Resp Auscultation: clear to auscultation bilaterally Cardio Rate: regular rate Rhythm: regular rhythm GI Inspection: Yes normal to inspection Extrem General: No edema Ankle/foot/toe images: 1. 3 mm thickened whitish skin, tender with a central depression 2. 1/2 way clear nails Assessment and Plan Assessment & Plan (1) Obstructive sleep apnea hypopnea, severe: Comment: On the CPAP and uses Q night > 4 hours and benefits from this Code(s): G47.33 - Obstructive sleep apnea (adult) (pediatric) Plan: Patient uses the CPAP more than 4 hours a night and benefits from this. (2) Obesity (BMI 30-39.9): Code(s): E66.9 - Obesity, unspecified Plan: Diet and exercise (3) Hypertension: Code(s): I10 - Essential (primary) hypertension Plan: Continue with blood pressure medication. Decrease salt intake and exercise presently on metoprolol 25 mg once a day (4) Hypercholesterolemia: Code(s): E78.00 - Pure hypercholesterolemia, unspecified Plan: Avoid fried foods, chicken skin, eggs, butter margarine, pastries and meat. Be it pork or beef they have a lot of cholesterol LDL goal of less than 130 and triglyceride of less than 150 on simvastatin 5 mg once a day (5) Onychomycosis: Code(s): B35.1 - Tinea unguium Plan: on terbinafine and doing good will require more treatment for a few months (6) Foreign body in foot, left: Code(s): S90.852A - Superficial foreign body, left foot, initial encounter Orders: Orders Complete Blood Count Auto Diff 5 Months E78.00 - Pure hypercholesterolemia, unspecified Comprehensive Met. Panel 5 Months E78.00 - Pure hypercholesterolemia, unspecified Lipid Panel 5 Months E78.00 - Pure hypercholesterolemia, unspecified XR foot LT min 3V Today S90.852A - Superficial foreign body, left foot, initial encounter Free T4 (Free Thyroxine) 5 Months E78.00 - Pure hypercholesterolemia, unspecified Thyroid Stimulating Hormone 5 Months E78.00 - Pure hypercholesterolemia, unspecified Vitamin B12 and Folate 5 Months E78.00 - Pure hypercholesterolemia, unspecified Prostate Specific Antigen Scr 5 Months E78.00 - Pure hypercholesterolemia, unspecified Referrals Podiatry Referral S90.852A - Superficial foreign body, left foot, initial encounter Coding Level of Care Code Est Pt Level 4 (02011) Diagnoses Obstructive sleep apnea hypopnea, severe G47.33 Obesity (BMI 30-39.9) E66.9 Hypertension I10 Hypercholesterolemia E78.00 Onychomycosis B35.1 Foreign body in foot, left S90.852A
[2023-08-19 16:29] VITALS: BP 132/80
== END 2023-08-19 16:35 | disposition home or self-care (01) ==
PROVIDERS: PCP Internal Medicine; Visit Provider Internal Medicine
DX: G47.33 Obstructive sleep apnea (adult) (pediatric) (principal); I10 Essential (primary) hypertension; E78.00 Pure hypercholesterolemia, unspecified; B35.1 Tinea unguium; S90.852A Superficial foreign body, left foot, initial encounter
CPT/HCPCS: 99214

== ENCOUNTER 2023-08-20 15:20 | Outpatient (REF) | payer OTHER, SELFPAY ==
--- NOTE | ~2023-08-20 | XR_ITS ---
EXAMINATION: XR FOOT, LEFT CLINICAL INFORMATION: Stepped on glass 1.5 months ago. Pain. COMPARISON: None available. TECHNIQUE: AP, lateral, and oblique views of the left foot. FINDINGS: Soft tissues are swollen at the foot. No fracture or malalignment. No acute osseous findings. No radiodense foreign bodies. Joints appear relatively well-preserved. Small enthesopathic spurs are present at the Achilles tendon insertion and plantar fascial origin on the calcaneus. There is a small 3 mm lucency within the plantar/lateral aspect of the fourth toe proximal phalangeal base, which demonstrates peripheral sclerosis and is of uncertain etiology. XR/XR foot LT min 3V IMPRESSION: 1. Soft tissue swelling at the foot. No radiodense foreign bodies. 2. Small 3 mm lucency in the fourth toe proximal phalangeal base with peripheral sclerosis. This could correspond to normal trabecular variation or degenerative subchondral geode and more acute abnormality such as focal osteomyelitis is less likely, though consider further assessment with MRI if the patient's symptoms are specific to this location.
== END 2023-08-20 15:21 | disposition home or self-care (01) ==
LOC: HO.XRAY 15:20
PROVIDERS: PCP Internal Medicine; Visit Provider Internal Medicine
DX: S90.852A Superficial foreign body, left foot, initial encounter (principal)
CPT/HCPCS: 73630

== ENCOUNTER 2024-03-17 06:31 | Outpatient (REF) | payer OTHER, SELFPAY ==
--- OUTSIDE RECORDS SUMMARY | 2024-03-17 06:34 | XMS_ITS | Patient Health Record ---
[facility] Address [address] [place] [address] Care Team Providers Care Executive Pastry Chef Name Role Phone Alejandro Villarreal Primary Care Provider UnavailBuzz Adair Unavailable [phone] Sherrie Portillo Unavailable [phone] Reason For Referral No Information Medications Medication SIG (Take, Route, Frequency, Duration) Notes Start Date End Date Status Terbinafine Active Simvastatin 5 MG 2 tablets in the bree munir Orally Once a day Active Metoprolol Succinate 25 MG 1 capsule Ora lly Once a day Active Metoprolol Succinate Active Simvastatin Active Ketorolac [...] tobacco user? No Vital Signs Height 5 FT 5 IN in 11/05/2023 Weight 216 lbs 11/05/2023 BMI 35.94 kg/m2 11/05/2023 Encounters Encounter Location Date [facility] [address] [facility] [address] [place] [address] 11/05/2023 Buzz Wahl Puncture wound of left foot without foreign body, initial encounter S91.332A and Hypertrophic scar L91.0 [facility] [address] [place] [address] 10/21/2023 Sherrie Portillo Assessments Encounter Date Diagnosis (ICD Code) Assessment Notes Treatment Notes Treatment Clinical Notes Section Notes 11/05/2023 Hypertrophic scar (ICD-10 - L91.0) 11/05/2023 Puncture wound of left foot without foreign body, initial encounter (ICD-10 - S91.332A) Plan Of Treatment No Information Insurance Providers Payer Name Payer Address Payer Phone Subscriber Number Group Number Insured Name Patient Relationship to Insured Coverage Start Date Coverage End Date [facility] [address] [place] [address] [id number] Daryl Cornell Self - patient is the insured Medical (General) History Medical History History ICD Code Hypertension Chicken pox
--- OUTSIDE RECORDS SUMMARY | 2024-03-17 06:34 | XMS_ITS | Patient Health Record ---
Author Organization [facility] Address [address] [place] [address] Care Team Providers Care Cooker Loader Name Role Phone Alejandro Villarreal MD Primary Care Provider Quinton Clement [phone] ALLERGIES No Known Allergies REASON FOR REFERRAL No Information MEDICATIONS Medication SIG (Take, Route, Frequency, Duration) Notes Start Date End Date Status Ketorolac Tromethamine 10 MG 1 tablet with food or milk as needed Orally every 6 hrs/ prn Active Atorvastatin Calcium 20 MG Oral for 30 Active Valsartan 40 MG Oral for 30 Ac tive SOCIAL HISTORY Sex Assigned At : Social History Observation Description Sex Assigned At Unknown PROBLEMS Problem Type ICD Code Onset Dates Problem Status W/U Status Risk SNOMED Code Notes Problem Encounter for screening for malignant neoplasm of colon (Z12.11) Active confirmed 890111871 Problem Encounter for screening for malignant neoplasm of rectum (Z12.12) Active confirmed Screening for malignant neoplasm of rectum (783815652) Problem Preprocedural examination (Z01.818) Active confirmed 13909769 Problem Family history of colon cancer (Z80.0) Active confirmed 285886993 Problem Diverticulosis of large intestine without perforation or abscess without bleeding (K57.30) Active confirmed Diverticul ar disease of colon (548939554) PLAN OF TREATMENT Pending Test Test Name Order Date Pathology 09/04/2022 Future Test Test Name Order Date COLONOSCOPY 03/06/2016 COLONOSCOPY 07/02/2022 Insurance Providers Payer Name Payer Address Payer Phone Subscriber Number Group Number Insured Name Patient Relationship to Insured Coverage Start Date Coverage End Date [facility] [address] [address] [place] [address] [id number] WHEELERBALDEV [employer]RAXTON Self - patient is the insured MEDICAL (GENERAL) HISTORY Medical History History ICD Code Denies IA,DM,CVA,Lung disease,renal dise ase Hypercholesterolemia Sleep apnea-uses a CPAP Hypertension Negative screening colonoscopy in 05/2016 Surgical History Surgery Date(Month/Year)
--- OUTSIDE RECORDS SUMMARY | 2024-03-17 06:34 | XMS_ITS | Continuity of Care Document ---
Author Organization [facility] Address [address] [place] [address] Phone Care Team Providers Care Bituminous Paving Machine Operator Name Role Phone Provider, [employer] Unavailable Unavailable Advance Directives Directive Yes / No Effective Date File Name No Information Encounters Encounter Description Practice Location Reason(s) For Visit Diagnoses Date Provider Providers [facility] [address] [place] [address], [id number], tel:[phone] No Information 3-201 3 Provider [employer]. . [facility], [address] [place] [address], [id number], tel:+ [phone] [facility] Location DYSLIPIDEMIAHYPERTE NSION CONTROLLED, BENIGGASTROESOPHAGE AL REFLUXDIVERTICULITI S OF COLONPSORIASISOVERN UTRITIONABDOMINAL SWELLING MASS OR LUCRETIA 4-200 9 Provider [employer]. . [facility], [address] [place] [address], [id number], [place] tel: [phone] [facility] Location DYSLIPIDEMIAHYPERTE NSION CONTROLLED, BENIGGASTROESOPHAGE AL REFLUX 3 0-200 9 Provider [employer]. . [facility], [address] [place] [address], [id number], [place] tel: [phone] [facility] Location No Information 9-200 9 Provider [employer]. . [facility], [address] [place] [address], [id number], [place] tel:[phone] [facility] Location DYSLIPIDEMIAHYPERTE NSION CONTROLLED, BENIGDIVERTICULITIS OF COLONPSORIASIS 9-200 9 Provider [facility]. . [facility], [address] [place], [place] [address]io, [place], [id number], tel:+ [phone] [facility] Location CHEST PAIN, NOS 4200 9 Provider [facility]. . [facility], [facility], [place], [place], [id number], tel:+ [phone] [facility] Location DYSLIPIDEMIAHYPERTE NSION CONTROLLED, BENIGGASTROESOPHAGE AL REFLUXLUMBAR BACK PAINOVERNUTRITIONAB DOMINAL SWELLING MASS OR LUCRETIA 9-200 9 Provider [employer]. . [facility], [address] [place] [address] Dong, [place], [place], [id number], [place] tel: [phone] [facility] Location DYSLIPIDEMIAHYPERTE NSION CONTROLLED, BENIGGASTROESOPHAGE AL REFLUXPSORIASISOVER NUTRITION 7200 9 Provider [facility]. . [facility], [address] [place] [address] Dong, [place], [place], [id number], tel: [phone] [facility] Location DYSLIPIDEMIAHYPERTE NSION CONTROLLED, BENIGBRONCHITISALLE RGIC RHINITISGASTROESOPH AGEAL REFLUXPSORIASISLUMB AR BACK PAINOVERNUTRITION 6-200 9 Provider [facility]. . [facility], [address] [place] [address] Dong, [place], [place], [id number], tel: [phone] [facility] Location HYPERTENSION CONTROLLED, BENIGBRONCHITISALLE RGIC RHINITISGASTROESOPH AGEAL REFLUXPSORIASISOVER NUTRITION 6200 9 Provider [facility]. . [facility], [address] [place] [address] Dong, [place], [place], [id number], tel: [phone] [facility] Location OTHER ACUTE PAIN 4200 8 Provider [employer]. . Family History Family Member Type Diagnosis Age At Onset No Information Immunizations Vaccine Date Status Comments Influenza virus vaccine, spl it virus, when administered to individuals 3 years of age and older, for intramuscular use (Afluria) administered Note: [facility] [place] conversion as of 01/31/2013 ; Source: New Immunization Record Payers Payer name Insurance type Covered libertarian ID Authoriza tion(s) No Information Social History Type Description Quantity Date Captured Comments Sex Male Smoking Status No Information Chief Complaint And Reason For Visit No Information History Of Present Illness Encounter Date Complaint History Of Prese nt Illness No Information Instructions Date Instruction Additional Infor mation No Information Assessments Type Assessment Date No Information
--- OUTSIDE RECORDS SUMMARY | 2024-03-17 06:34 | XMS_ITS ---
Author Organization [facility] Address [address] [place] [address] Care Team Providers Care Dipper And Baker Name Role Phone Alejandro Villarreal Primary Care Provider Buzz Martinez Unavailable [phone] Sherrie Portillo Unavailable [phone] REASON FOR VISIT HIGH PRESSURE CLEANER PPWK Entered Encounters Encounter Location Date Provider Diagnosis [facility] [address] [place] [address] 10/21/2023 Sherrie Portillo Plan Of Treatment No Information Progress Notes * Daryl CORNELL MDOB: 3 (63 yo M)Acc No.[id number]:10/21/2023 Patient:?Daryl Cornell :1960???Age:63 Y???Sex:Male Address:[address] [place] [address], [address] * true * Date:? Generated for Printi ng/Nadine/eTransmitting on:?03/17/2024 06:33 AM EST
--- OUTSIDE RECORDS SUMMARY | 2024-03-17 06:34 | XMS_ITS ---
[facility] Address [address] [place] [address] Care Team Providers Care Senior Support Analyst Name Role Phone Alejandro Villarreal Primary Care Provider Buzz Martinez Unavailable [phone] Allergies No Known Allergies REASON FOR VISIT Skin problem(s) Medications Medication SIG (Take, Route, Frequency, Duration) Notes Start Date End Date Status Simvastatin 5 MG 2 tablets in the bree munir Orally Once a day Active Metoprolol Succinate 25 MG 1 capsule Ora lly Once a day Active Social History Tobacco Use: Social History [...] 11/05/2023 Encounters Encounter Location Date Provider Diagnosis [facility] [address] [facility] [address] [place] [id number] 11/05/2023 Buzz Wahl Puncture wound of le ft foot without foreign body, initial encounter S91.332A and Hypertrophic scar L91.0 Assessments Encounter Date Diagnosis (ICD Code) Assessment Notes Treatment Notes Treatment Clinical Notes Section Notes 11/05/2023 Puncture wound of left foot without foreign body, initial encounter (ICD-10 - S91.332A) 11/05/2023 Hypertrophic scar (ICD-10 - L91.0) Plan Of Treatment Next Appt Details Follow Up: prn, Reason: Progress Notes * Daryl CORNELL MDOB: 3 (63 yo M)Acc No.[id number]:11/05/2023 Progress Notes Patient:?Daryl Cornell Provider:?Buzz Wahl DPM :1960???Age:63 Y???Sex:Male Angel e:11/05/2023 Address:[address] [place], [place] [id number] Pcp:Alejandro Villarreal Subjective: * Chief Complaints: * ???Skin problem(s) * HPI: ???Skin problems:?Nature:?tender.?Location:?Bottom , Forefoot , Left.?Duration:?2 months.?Onset/Cause:?trauma ( states stepped on glass, but was able to pull it out).?Aggravated by:?any pressure.?Treatments:?none.?Misc:?States XRs were negative for foreign body.? * ROS:?General/Constitutional:?Nausea?denies.?Vomiting?denies.?Hunger Thirst?denies.?Loss appetite?denies.?Chills?denies.?Fatigue?denies.?Fever?denies.?Night Sweats?denies.?Unexplained weight loss?denies.?Unexplained weight gain?denies.?HEENTM:?Dentures?denies.?Dizziness?denies.?Glasses/contacts?admits.?Retinopathy?de nies.?Blurred/double vision?denies.?TMJ?denies.?Discharge/drainage?denies.?Implants?denies.?Sore throat?denies.?Dental implants?denies.?Hard of hearing ?denies.?Difficulty chewing/swallowing/speaking?denies.?Nose bleeds?denies.?Sore mouth?denies.?Respiratory:?On Oxygen?denies.?Pneumonia/pleurisy?denies.?Bronchitis?denies.?Emphysema?denies.?C oughing?denies.?Cough blood?denies.?Shortness of breath?denies.?Wheezing?denies.?Cardiovascular:?Pacemaker?denies.?MVP?denies.?WPW?denies.?CHF?denies.?Heart attack?denies.?Septal defect?denies.?Rapid beat?denies.?Chest pain ?denies.?Atrial Fib.?denies.?Murmur/Palpitations?denies.?Gastrointestinal:?Hemorrhoids?denies.?Stomach/Abdominal pain?denies.?Dark blood stool?denies.?Irritable bowel ?denies.?Constipation?denies.?Diarrhea?denies.?Hematology:?Swelling?denies.?Clots?denies.?Varicose Veins?denies.?Bruising?denies.?Bleeding problem?denies.?Genitourinary:?Blood urine?denies.?Frequent/Painfu/urination/bladder control?denies.?Kidney stones?denies.?Infection (UTI)?denies.?Nephropathy?denies.?sex trans dis (STD)?denies.?Prostate?denies.?Musculoskeletal:?Hammertoes?denies.?Bunions?denies.?Back Pain?admits.?Muscle Cramps/ Resting?denies.?Muscle cramps / walking?denies.?Generalized aches and pains?denies.?Weakness?denies.?Integ.:?Chappell?denies.?Scars?denies.?Corns/calluses?denies.?Ingrown nails?admits.?Painful nails?denies.?Open Sores?denies.?Rashes?denies.?Neurologic:?Difficulty sleeping?denies.?Brain disorder?denies.?Numbness?denies.?Balance trouble?denies.?Confusion?denies.?Fainting/blackouts?denies.?Tingling?denies.?Tr emors?denies.? * Medical History:? * Surgical History:?No Surgica l History documented. * Hospitalization/Major Diagno stic Procedure:?No Hospitalization History. * Family History:?Mother: rosalva feng, diagnosed with Family history of arthritis, Unspecified essential hypertension.?Father: , diagnosed with Unspecified essential hypertension, Other malignant neoplasm of unspecified site.?Maternal Grand Father: stroke.?Spouse: .? * Social History:?Tobacco Use:?Tobacco Use/Smoking?Are you a:?nonsmoker ?Additional Findings: Tobacco Non-User?Current non-smoker ?Tobacco use other than smoking?Are you an other tobacco user??No ???Drugs/Alcohol:?Drugs?Have you used drugs other than those for medical reasons in the past 12 months??No ?Alcohol Screen?Did you have a drink containing alcohol in the past year??No ?Points?0 ?Interpretation?Negative ???Miscellaneous:?no Caffeine. ?Children: yes, 1. ?Marital status: . 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 * Medications:?TakingSimvastat in 5 MG Tablet 2 tablets in the evening Orally Once a dayMetoprolol Succinate 25 MG Capsule ER 24 Hour Sprinkle 1 capsule Orally Once a dayMedication List reviewed and reconciled with the patientTaking Simvastatin 5 MG Tablet 2 tablets in the evening Orally Once a dayTaking Metoprolol Succinate 25 MG Capsule ER 24 Hour Sprinkle 1 capsule Orally Once a dayMedication List reviewed and reconciled with the patient * Allergies:?N.K.D.A.yes[Aller gies Verified] Objective: * Vitals:?Ht: 5 FT 5 IN, Wt:21 6, BMI:35.94, Shoe size: 8.5, Ht-cm: 165.1 cm, Wt- k.98 kg. * Examination: ???Dermatologic: ?SKIN FINDINGS:?Skin shows sign(s) of, Puncture Wound extending into the Sub Q WITHOUT evidence of FOREIGN BODY, and without any sign(s) of infection, Plantar , Forefoot, Left, Skin exam reveals normal texture, elasticity, and turgor. There are no masses. The interspaces are clear , Skin shows sign(s) of , hypertrophic scar.?General Examination: ?GENERAL APPEARANCE:?Reveals a pleasant, alert, well-nourished, well- developed, well hydrated individual, who demonstrates proper attention to hygiene/body habitus, and is in no acute distress, Pt serves as own?historian for office visit today.?ORIENTED:?person, place, and time.?Neurological: ?SENSORY:?Neurological exam reveals intact sensorium, pain sensation normal, vibration sensation intact, pinprick sensation is normal in the lower extremities, Pt denies, anesthesia, burning, paresthesia, tingling, B/L.?DEEP TENDON REFLEXES:?Achilles, 2/4, B/L.?Vascular: ?DP PULSES:?3/4, B/L.?PT PULSES:?3/4, B/L.?CAPILLARY FILL TIME:?immediate, all digits, B/L.?SKIN TEMPERTURE GRADIENT OF THE LOWER EXTERMITIES:?warm to cool, proximal to distal, B/L.?HAIR GROWTH/TEXTURE/ELASTICITY/TURGOR:?normal, B/L.?PIGMENTATION:?normal, B/L.?EDEMA:?absent, B/L.?Orthopedic: ?MUSCLE STRENGTH:?5/5 all groups in a symmetrical fashion , B/L.? Assessment: * Assessment: 1.?Hypertrophic scar - L91.0 ?2.?Puncture wound of left foot without foreign body, initial encounter - S91.332A, Acute problem, Uncomplicated (3)? Plan: * Treatment: * Procedure Codes:? * Preventive Medicine:? ??Counseling:?Discussion:?-03: Office or other outpatient visit for the evaluation and management of a new patient, which required a medically appropriate history and/or examination and LOW level of DECISION MAKING for: 1 STABLE ACUTE UNCOMPLICATED PROBLEM, 2 OR MORE MINOR PROBLEMS, OR 1 STABLE CHRONIC PROBLEM, THAT POSE(S) A LOW RISK FOR MORBIDITY/MORTALITY. The visit on the day of the encounter encompassed interpreting the data and educating the patient as to the nature of their condition, treatment options available according to their individual PMH, meds, allergies, and overall health/living conditions, as well as any potential risks or complications that may occur from a failure to adhere to, and participate in, the recommended course of therapy. The discussion included a complete verbal, and/or written explanation of the examination results, any x-rays taken, the proposed diagnosis, and outline of the treatment plan. A schedule for future care needs was also explained. The patient verbalized an understanding of the instructions at this time and agreed to be an active participant in their treatment. If the patient should think of any questions or concerns after the visit, I have encouraged the patient to call the office. The lesion was debrided with sterile 15 blade to patient tolerance. Recommendations were made for application of silicone gel sheeting and, or, ena acid on a regular basis as well as periodic debridement.? * Follow Up:?prn * Images: * Sign off status: Completed true * Provider:?Buzz Wahl DPM Date:?2023 Generated for Kelsi jaimes/Nadine/La on:?03/17/2024 06:33 AM EST History and Physical Notes * HPI (History of Present Illness) Category Sub-Category Detail Notes Category Not es Skin problems Nature: tender Location: Bottom , Forefoot , Left Duration: 2 months Onset/Cause: trauma ( states step ped on glass, but was able to pull it out) Aggravated by: any pressure Treatments: none Misc: States XRs were nega tive for foreign body Examination Category Sub-Category Detail Notes Category Not es Neurological SENSORY: Neurological exa m reveals intact sensorium, pain sensation normal, vibration sensation intact, pinprick sensation is normal in the lower extremities, Pt denies, anesthesia, burning, paresthesia, tingling, B/L DEEP TENDON REFLEXES: Achilles, 2/4, B/L Dermatologic SKIN FINDINGS: Skin shows sign( s) of, Puncture Wound extending into the Sub Q WITHOUT evidence of FOREIGN BODY, and without any sign(s) of infection, Plantar , Forefoot, Left, Skin exam reveals normal texture, elasticity, and turgor. There are no masses. The interspaces are clear , Skin shows sign(s) of , hypertrophic scar Orthopedic MUSCLE STRENGTH: 5/5 all groups in a symm etrical fashion , B/L General Examination GENERAL APPEARANCE: Reveals a pleasant, alert, well- nourished, well-developed, well hydrated individual, who demonstrates proper attention to hygiene/body habitus, and is in no acute distress, Pt serves as own historian for office visit today ORIENTED: person, place, and t augustine Vascular DP PULSES(B): 3/4, B/L PT PULSES(B): 3/4, B/L CAPILLARY FILL TIME: immediate, all digi ts, B/L TEMPERTURE GRADIENT(C): warm to cool, pr oximal to distal, B/L TROPHIC CONDITION-TEXTURE/ELASTICITY/TURGOR/HAIR GROWTH(B): normal, B/L EDEMA(C): absent, B/L PIGMENTATION: normal, B/L
--- OUTSIDE RECORDS SUMMARY | 2024-03-17 06:34 | XMS_ITS ---
Author Organization [facility] Address [address] [place] [address] Care Team Providers Care Outreach Representative Name Role Phone Alejandro Villarreal Primary Care Provider Buzz Martinez Unavailable [phone] Sherrie Portillo Unavailable [phone] REASON FOR VISIT SEEN SOONER Medications Medication [...] 11/24/2023 Encounters Encounter Location Date Provider Diagnosis [address] [address] 11/24/2023 Sherrie Portillo Plan Of Treatment No Information Progress Notes * Daryl CORNELL MDOB: 3 (63 yo M)Acc No.[id number]:11/24/2023 Progress Notes Patient:?Daryl CORNELL Provider:?Sherrie Portillo DPM :1960???Age:63 Y???Sex:Male Angel e:11/24/2023 Address:[address] [place], [place] [id number] Pcp:Alejandro Villarreal Subjective: * Chief Complaints: * ???1. SEEN SOONER. * ROS:?General/Constitutional:?Nausea?denies.?Vomiting?denies.?Hunger Thirst?denies.?Loss appetite?denies.?Chills?denies.?Fatigue?denies.?Fever?denies.?Night Sweats?denies.?Unexplained weight loss?denies.?Unexplained weight gain?denies.?HEENTM:?Dentures?denies.?Dizziness?denies.?Glasses/contacts?admits.?Retinopathy?de nies.?Blurred/double vision?denies.?TMJ?denies.?Discharge/drainage?denies.?Implants?denies.?Sore throat?denies.?Dental implants?denies.?Hard of hearing ?denies.?Difficulty chewing/swallowing/speaking?denies.?Nose bleeds?denies.?Sore mouth?denies.?Respiratory:?On Oxygen?denies.?Pneumonia/pleurisy?denies.?Bronchitis?denies.?Emphysema?denies.?C oughing?denies.?Cough blood?denies.?Shortness of breath?denies.?Wheezing?denies.?Cardiovascular:?Pacemaker?denies.?MVP?denies.?WPW?denies.?CHF?denies.?Heart attack?denies.?Septal defect?denies.?Rapid beat?denies.?Chest pain ?denies.?Atrial Fib.?denies.?Murmur/Palpitations?denies.?Gastrointestinal:?Hemorrhoids?denies.?Stomach/Abdominal pain?denies.?Dark blood stool?denies.?Irritable bowel ?denies.?Constipation?denies.?Diarrhea?denies.?Hematology:?Swelling?denies.?Clots?denies.?Varicose Veins?denies.?Bruising?denies.?Bleeding problem?denies.?Genitourinary:?Blood urine?denies.?Frequent/Painfu/urination/bladder control?denies.?Kidney stones?denies.?Infection (UTI)?denies.?Nephropathy?denies.?sex trans dis (STD)?denies.?Prostate?denies.?Musculoskeletal:?Hammertoes?denies.?Bunions?denies.?Back Pain?admits.?Muscle Cramps/ Resting?denies.?Muscle cramps / walking?denies.?Generalized aches and pains?denies.?Weakness?denies.?Integ.:?Chappell?denies.?Scars?denies.?Corns/calluses?denies.?Ingrown nails?admits.?Painful nails?denies.?Open Sores?denies.?Rashes?denies.?Neurologic:?Difficulty sleeping?denies.?Brain disorder?denies.?Numbness?denies.?Balance trouble?denies.?Confusion?denies.?Fainting/blackouts?denies.?Tingling?denies.?Tr emors?denies.? * Medical History:?Hypertensio n, Chicken pox. * Family History:?Mother: rosalva feng, diagnosed with Family history of arthritis, Unspecified essential hypertension.?Father: , diagnosed with Unspecified essential hypertension, Other malignant neoplasm of unspecified site.?Maternal Grand Father: stroke.? * Social History:?Tobacco Use:?Tobacco Use/Smoking?Are you a:?nonsmoker ?Additional Findings: Tobacco Non-User?Current non-smoker ?Tobacco use other than smoking?Are you an other tobacco user??No ???Drugs/Alcohol:?Drugs?Have you used drugs other than those for medical reasons in the past 12 months??No ?Alcohol Screen?Did you have a drink containing alcohol in the past year??No ?Points?0 ?Interpretation?Negative ???Miscellaneous:?Caffeine: no. ?Children: yes, 1. ?Marital status: . 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 * Medications:?Taking Metoprol ol Succinate , Taking Simvastatin , Taking Ketorolac Tromethamine , Taking Terbinafine Objective: * Vitals:?Ht: 5 ft 5 in, Wt:21 6, BMI:35.94, Shoe size: 8.5, Ht-cm: 165.1 cm, Wt- k.98 kg. Assessment: Plan: * Treatment: * Images: * The named appointment provid er may or may not be the originator of this progress note, and it is not deemed complete until electronically signed by the appointment provider. Sign off status: Pending * Provider:?Sherrie Portillo DPM Date:? Generated for Kelsi jaimes/Nadine/La on:?03/17/2024 06:33 AM EST
[2024-03-17 06:41] LABS: MANUAL DIFF FLAG NO
[2024-03-17 07:09] LABS: Basophils Percent Auto 0.7 % (0-2); Eosinophils Absolute Auto 0.3 X10*3/uL (0.0-0.4); Eosinophils Percent Auto 5.5 % (0-4); Hematocrit 42.7 % (42.0-52.0); Imm Gran Abs Auto 0.01 X10*3/uL (0.00-0.03); Imm Gran Pct Auto 0.2 % (0.0-0.4); Lymphocytes Absolute Auto 1.2 X10*3/uL (1.2-4.9); Lymphocytes Percent Auto 20.9 % (20-40); Mean Corpuscular HGB Conc 35.1 g/dl (31.0-36.0); Mean Corpuscular Hemoglobin 32.2 pg (27.0-33.0); Mean Corpuscular Volume 91.6 fL (80.0-98.0); Mean Platelet Volume 9.7 fL (9.4-12.4); Monocytes Absolute Auto 0.5 X10*3/uL (0.1-1.2); Monocytes Percent Auto 9.1 % (2-11); Neutrophils Absolute Auto 3.5 x10*3/uL (2.0-8.3); Neutrophils Percent Auto 63.6 % (45-73); Platelet Count 218 X10*3/uL (160-400); Red Blood Count 4.66 X10*6/uL (4.60-5.80); Red Cell Distribution Width 12.7 % (11.0-16.0); White Blood Count 5.5 X10*3/uL (4.8-10.8)
[2024-03-17 07:45] LABS: Alanine Aminotransferase 35 U/L (0-40); Albumin Level 3.9 g/dL (3.5-5.0); Alkaline Phosphatase 84 U/L (39-117); Anion Gap 8 (12-20); Aspartate Amino Transferase 24 U/L (5-37); Bilirubin Total 0.5 mg/dL (0.0-1.0); Blood Urea Nitrogen 17 mg/dL (9-16); Calcium 8.4 mg/dL (8.4-10.2); Carbon Dioxide 27 mmol/L (22-29); Chloride 107 mmol/L (96-108); Cholesterol 193 mg/dL (<200); Estimated Glomerular Filt Rate > 60; Glucose Random 96 mg/dL (60-115); HDL Cholesterol 45 mg/dL (>40); LDL Cholesterol Calculated 128 mg/dL (<100); Sodium 138 mmol/L (135-145); Total Protein 7.1 g/dL (6.5-8.0); Triglycerides 101 mg/dL (<150)
[2024-03-17 08:01] LABS: Free T4 (Free Thyroxine) 0.87 ng/dL (0.71-1.85); Thyroid Stimulating Hormone 2.08 uIU/mL (0.32-4.0)
[2024-03-17 08:29] LABS: Folate 13.7 ng/mL (> or = 4.0); Prostate Specific Antigen Scr 3.36 ng/mL (<0.05-4.0); Vitamin B12 555 pg/mL (200-900)
== END 2024-03-17 06:32 | disposition home or self-care (01) ==
LOC: HO.LAB 06:31
PROVIDERS: PCP Internal Medicine; Visit Provider Internal Medicine
DX: E78.00 Pure hypercholesterolemia, unspecified (principal); Z12.5 Encounter for screening for malignant neoplasm of prostate
CPT/HCPCS: 36415; 80053; 80061; 82607; 82746; 84153; 84439; 84443; 85025

== ENCOUNTER 2024-03-30 14:51 | Outpatient (AMB) | payer OTHER, SELFPAY ==
--- NOTE | 2024-03-30 14:58 | A.OFFPC_ITS ---
Vital Signs 03/30/24 14:59 03/30/24 15:15 Height 5 ft 5 in Weight 230 lb 2 oz BMI 38.3 BP 110/68 132/84 Blood Pressure Location Lt brachial Lt brachial Position Sitting Sitting Pulse 83 Pulse Source Pulse Oximeter Pulse Oximetry (%) 96 Oxygen Delivery Method Room Air Intake Visit Reasons: annual exam Intake Note: Patient is here today for a physical. Pt decline flu shot today. Sample Case Porter Required: No Pre Parole Counseling Aide: Not Required per policy Accompanied by: Self / Same As Patient Allergies No Known Allergies [No Known Allergies*] Allergy (Verified 03/30/24 15:09) Medication List - Last Reconciled 03/30/24 by Glory Byers PA-C [CPAP full face mask small 12 cm humidified air As directed] ketorolac 10 mg PO Q6H PRN 5 days metoprolol succinate ER 25 mg PO DAILY 90 days miconazole nitrate 2% (Zeasorb AF) 1 appl topical BID simvastatin 5 mg PO BEDTIME 90 days Tobacco use date assessed: 03/30/24 Dental Screening Dental Screen Date: 05/16/23 HPI annual exam HPI Details 63-year-old obese male with past medical history of obstructive sleep apnea, hypercholesterolemia, hypertension last seen July 2023 coming in for annual exam. Patient is up-to-date on colonoscopy August 2022. Patient has no acute concerns today. [facility] Medical History Back pain HTN (hypertension) Diverticulitis Hypercholesterolemia Obstructive sleep apnea hypopnea, severe Carpal tunnel syndrome Obesity (BMI 30-39.9) Surgical History Hx of colonoscopy Family History Father Colon cancer CAD (coronary artery disease) Paternal Aunt Colon cancer Social History Housing: House Alcohol intake: never Patient Tobacco Use Status: Never used Tobacco e-Cigarette/Vaping Use: Never Used Second Hand Smoke Exposure: No service: No Current occupational status: employed Current occupational exposures/hazards: No Cognitive needs: No Hearing needs: No Vision needs: No Questionnaire Thrive Questionnaire Date Thrive assessed: 05/16/23 ZENY-7 AMB Questionnaire ZENY-7 Date ZENY - 7 assessed: 05/16/23 Source: Developed by Drs. Quinton Young, Estelle Carrillo, Raimundo Hunter and colleagues, with an educational debby from [employer]. Review of Systems Const Denies body aches, Denies fatigue, Denies fever(s), Denies frequent falls, Denies headache(s) and Denies weakness Eyes Reports no additional complaints, Denies change in vision and Reports requires corrective lenses (for reading) ENT Denies dysphagia, Denies dizziness, Denies facial pain, Denies headache(s), Denies nasal congestion and Denies odynophagia Card Denies chest pain, Denies syncope, Denies irregular heart rhythm, Denies leg edema, Denies lightheadedness and Denies dyspnea Resp Denies cough and Denies dyspnea GI Denies abdominal pain, Denies constipation, Denies dysphagia, Denies dyspepsia, Denies diarrhea, Denies nausea, Denies odynophagia and Denies vomiting Denies dysuria, Denies urinary frequency, Denies urinary hesitancy and Denies urinary urgency Musc Denies back pain and Denies myalgias Skin/Breast Reports system reviewed and no additional complaints, except as documented Neuro Denies dizziness, Denies syncope, Denies frequent falls, Denies headache(s) and Denies weakness Psych Reports no additional complaints Endo Denies fatigue Physical exam (Primary Care) Vital Signs: Last Vital Signs Pulse 83 03/30/24 14:59 BP 132/84 03/30/24 15:15 Pulse Ox 96 03/30/24 14:59 Oxygen Delivery Method Room Air 03/30/24 14:59 BMI result Body Mass Index 38.3 Tobacco/Smoking Status: Tobacco use Status Tobacco use date assessed 03/30/24 03/30/24 15:02 Patient Tobacco Use Status Never used Tobacco 03/30/24 15:02 e-Cigarette/Vaping Use Never Used 03/30/24 15:02 Thrive Assessment: Date of Thrive Assessment Date Thrive assessed 05/16/23 03/30/24 15:02 Const General: cooperative, healthy appearing, comfortable and no acute distress Orientation/consciousness: patient oriented x3 HENMT Head: Yes normocephalic Ears: hearing grossly normal bilaterally, external ears normal, TM's normal bilaterally and EAC's normal General nose exam: Normal external nose present Face and sinus: Yes normal facial exam and Yes sinuses nontender Mouth: Normal oral and palatal mucosa present and tongue normal Throat: Yes posterior oropharynx normal Eyes General: appearance normal, both eyes and all related structures Conjunctivae: conjunctivae normal Pupils: Equal, round and reactive pupils present EOM: EOMs intact bilaterally and No Nystagmus present Neck Neck: Yes normal visual inspection, Yes full ROM and Yes no lymphadenopathy Chest Chest palpation & inspection: normal inspection of the chest Resp Effort & Inspection: normal respiratory effort Auscultation: clear to auscultation bilaterally, no crackles, no rales, no rhonchi, no wheezes and breath sounds present Cardio Rate: regular rate Rhythm: regular rhythm Peripheral pulses: radial pulses present and dorsalis pedis present GI Inspection: Yes normal to inspection and No Abdominal wall edema Palpation (GI): Soft to palpation, not firm and nontender Auscultation: normal bowel sounds Rectal Exam - Male: Yes deferred General: Yes no CVA tenderness Back/Spine/Pelvis Back: no CVA tenderness Skin General skin exam: no rashes or lesions noted Neuro General: patient oriented x3 Cranial nerves: Yes Equal, round and reactive pupils present, Yes Midline tongue present, Yes Ability to bilaterally elevate shoulders present and No Nystagmus present Gait exam (Neuro): Normal gait present Extrem General: Yes normal to inspection, Yes full ROM, No no pedal edema and No edema Psych Speech and movement: Normal speech and movement present Affect: normal affect Insight: Good insight present (Psych) Judgement: Good judgement present (Psych) Coding Level of Care Code Est Pt Prev Care 40-64y(54036) Diagnoses Hypertension I10 Hypercholesterolemia E78.00 Obstructive sleep apnea hypopnea, severe G47.33 Obesity (BMI 30-39.9) E66.9 Annual physical exam Z00.00 Family history of colon cancer Z80.0 Assessment & Plan Assessment & Plan (1) Hypertension: Code(s): I10 - Essential (primary) hypertension Category: Medical Plan: Continue on current blood pressure medication. Avoid salt intake and encourage healthy diet and regular exercise. (2) Hypercholesterolemia: Code(s): E78.00 - Pure hypercholesterolemia, unspecified Category: Medical Plan: Avoid foods that are high in cholesterol such as red meat, fried foods, eggs and baked goods. Triglyceride goal of less than 150 and LDL goal of less than 130. Continue on simvastatin (3) Obstructive sleep apnea hypopnea, severe: Comment: On the CPAP and uses Q night > 4 hours and benefits from this Code(s): G47.33 - Obstructive sleep apnea (adult) (pediatric) Category: Medical Plan: Uses CPAP faithfully at least 4 hours a night and benefits from this therapy. (4) Obesity (BMI 30-39.9): Code(s): E66.9 - Obesity, unspecified Category: Medical Plan: Healthy diet and regular exercise is encouraged. (5) Annual physical exam: Code(s): Z00.00 - Encounter for general adult medical examination without abnormal findings Category: Medical Plan: Patient is up-to-date on all recommended routine screenings and vaccinations for his age. Blood work is up-to-date and within normal limits. We will have patient follow up in 6 months with repeat cholesterol labs. (6) Family history of colon cancer: Code(s): Z80.0 - Family history of malignant neoplasm of digestive organs Category: Medical Plan: Patient is currently up-to-date on colonoscopy screening. Plan This note was constructed using voice recognition software. While every effort has been made to ensure accuracy and highway maintainer, still areas may have been included sometimes these areas may affect the content or meeting of the given symptoms. Total time spent caring for the patient today was 30 minutes. This includes time spent before the visit reviewing the chart, time spent during the visit, and time spent after the visit and documentation. Orders: Orders Lipid Panel 6 Months E78.00 - Pure hypercholesterolemia, unspecified
[2024-03-30 14:59] VITALS: BP 110/68; PULSE 83; O2SAT 96; BMI 38.3
[2024-03-30 15:15] VITALS: BP 132/84
== END 2024-03-30 15:25 | disposition home or self-care (01) ==
PROVIDERS: PCP Internal Medicine
DX: Z00.00 Encounter for general adult medical examination without abnormal findings (principal); I10 Essential (primary) hypertension; E66.9 Obesity, unspecified; Z68.38 Body mass index [BMI] 38.0-38.9, adult; E78.00 Pure hypercholesterolemia, unspecified; G47.33 Obstructive sleep apnea (adult) (pediatric); Z80.0 Family history of malignant neoplasm of digestive organs

== ENCOUNTER 2024-09-22 05:59 | Outpatient (REF) | payer OTHER, SELFPAY ==
--- OUTSIDE RECORDS SUMMARY | 2013-01-30 20:00 | XMS_ITS | Continuity of Care Document ---
Author Organization [facility] Address [address] [place] [id number] Phone Care Team Providers Care Training Personnel Supervisor Name Role Phone Provider, [facility] Unavailable Unavailable Advance Directives Directive Yes / No Effective Date File Name No Information Encounters Encounter Description Practice Location Reason(s) For Visit Diagnoses Date Provider [facility], [address] [place] [address], [id number], tel:+ [phone] No Information 0 3-201 3 Provider [employer]. . [facility], [address] [place] [address], [id number], [place] tel:+ [phone] [facility] Location DYSLIPIDEMIAHYPERTENSION CONTROLLED, BENIGGASTROESOPHAGEAL REFLUXDIVERTICULITIS OF COLONPSORIASISOVERNUTRITIONAB DOMINAL SWELLING MASS OR [place] 4-200 9 Provider [facility]. . [facility], [address] [place] [address], [id number], [place] tel:[phone] [facility] Location DYSLIPIDEMIAHYPERTENSION CONTROLLED, BENIGGASTROESOPHAGEAL REFLUX Sep-3 0-200 9 Provider [facility]. . [facility], [address] [place] [address], [id number], [place] tel: [phone] [facility] Location No Information Nov- 9-200 9 Provider [facility]. . [facility], [address] [place] [address], [id number], [place] tel:+ [phone] [facility] Location DYSLIPIDEMIAHYPERTENSION CONTROLLED, BENIGDIVERTICULITIS OF COLONPSORIASIS 9-200 9 Provider [facility]. . [facility], [address] [place] [address], [id number], [place] tel:[phone] [facility] Location CHEST PAIN, NOS 4-200 9 Provider [facility]. . [facility], [address], [place], [place], [id number], tel:[phone] [facility] Location DYSLIPIDEMIAHYPERTENSION CONTROLLED, BENIGGASTROESOPHAGEAL REFLUXLUMBAR BACK PAINOVERNUTRITIONABDOMINAL SWELLING MASS OR [place]IA 9-200 9 Provider [facility]. . [facility], [address], [place], [place], [id number], tel:+ [phone] [facility] Location DYSLIPIDEMIAHYPERTENSION CONTROLLED, BENIGGASTROESOPHAGEAL REFLUXPSORIASISOVERNUTRITION 7-200 9 Provider [employer]. . [facility], [address], [place], [place], [id number], tel:[phone] [facility] Location DYSLIPIDEMIAHYPERTENSION CONTROLLED, BENIGBRONCHITISALLERGIC RHINITISGASTROESOPHAGEAL REFLUXPSORIASISLUMBAR BACK PAINOVERNUTRITION 6-200 9 Provider [facility]. . [facility], [address], [place], [place], [id number], [place] tel:[phone] [facility] Location HYPERTENSION CONTROLLED, BENIGBRONCHITISALLERGIC RHINITISGASTROESOPHAGEAL REFLUXPSORIASISOVERNUTRITION 6-200 9 Provider [facility]. . [facility], [address] [employer], [place], [place], [id number], tel: [phone] [facility] Location OTHER ACUTE PAIN 4-200 8 Provider [facility]. . Family History Family Member Type Diagnosis Age At Onset No Information Immunizations Vaccine Date Status Comments Influenza virus vaccine, spl it virus, when administered to individuals 3 years of age and older, for intramuscular use (Afluria) administered Note: [facility] [place] conversion as of 01/31/2013 ; Source: New Immunization Record Payers Payer name Insurance type Covered alliance party ID Authoriza tion(s) No Information Social History Type Description Quantity Date Captured Comments Sex Male Smoking Status No Information Chief Complaint And Reason For Visit No Information History Of Present Illness Encounter Date Complaint History Of Prese nt Illness No Information Instructions Date Instruction Additional Infor mation No Information Assessments Type Assessment Date No Information
[2024-09-22 07:44] LABS: Cholesterol 185 mg/dL (<200); HDL Cholesterol 41 mg/dL (>40); LDL Cholesterol Calculated 123 mg/dL (<100); Triglycerides 105 mg/dL (<150)
== END 2024-09-22 06:00 | disposition home or self-care (01) ==
LOC: HO.LAB 05:59
PROVIDERS: PCP Internal Medicine
DX: E78.00 Pure hypercholesterolemia, unspecified (principal)
CPT/HCPCS: 36415; 80061

== ENCOUNTER 2025-01-03 13:07 | Outpatient (AMB) | payer BC, OTHER, SELFPAY ==
--- OUTSIDE RECORDS SUMMARY | 2023-11-24 10:00 | XMS_ITS ---
Author Organization [facility] Address [address] [place] [address] Care Team Providers Care Tuckpointer Cleaner Caulker Name Role Phone Alejandro Villarreal Primary Care Provider UnavailBuzz Adair Unavailable [phone] Sherrie Portillo Unavailable [phone] REASON FOR VISIT SEEN SOONER Medications Medication [...] 11/24/2023 Encounters Encounter Location Date Provider Diagnosis [address] [address] 11/24/2023 Sherrie Portillo Plan Of Treatment No Information Progress Notes * Daryl CORNELL MDOB: 3 (64 yo M)Acc No.[id number]:11/24/2023 Progress Notes Patient: Lucille SCHNEIDERLESDaryl Provider: Ji Portillo DPM :1960 A ge:63 Y S ex:Male Date:11/24/2023 Address:[address] [place] [address], [id number] Pcp:Alejandro Villarreal Subjective: * Chief Complaints: * [...] enies. C ardiovascular: Pacemaker d enies. M CRYSTAL MOUNTER d enies. W PW d enies. C [...] Children: yes, 1. Marital status: . 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 * Medications: T aking Metoprolol Succinate , [...] 0 11/24/2023 Generated for Kelsi jaimes/Nadine/La on: 1 03:32 PM EDT
[2025-01-03 13:09] VITALS: BP 134/70; PULSE 98; TEMP 36.1; O2SAT 96; BMI 38.0
--- NOTE | 2025-01-03 13:09 | MHC.PC.OV ---
Vital Signs 01/03/25 13:09 Height 5 ft 5 in Weight 228 lb 8 oz BMI 38.0 BP 134/70 Blood Pressure Location Lt brachial Position Sitting Pulse 98 Pulse Source Pulse Oximeter Temp 97.0 F Temp Source Temporal Artery Scan Pulse Oximetry (%) 96 Oxygen Delivery Method Room Air Intake Visit Reasons: cholesterol Allergies No Known Allergies (No Known Allergies*) Allergy (Verified 01/03/25 13:12) Tobacco use date assessed: 01/03/25 Dental Screening Dental Screen Date: 01/03/25 Did you have a dental visit in the last 12 months?: No Did you have a dental problem in the last 6 months where you did not have access to dental care?: No Was dental information given to patient?: Patient has dentist [facility] Medical History Back pain HTN (hypertension) Diverticulitis Hypercholesterolemia Obstructive sleep apnea hypopnea, severe Carpal tunnel syndrome Obesity (BMI 30-39.9) Surgical History Hx of colonoscopy Family History Father Colon cancer CAD (coronary artery disease) Paternal Aunt Colon cancer Social History Housing: House Alcohol intake: never Patient Tobacco Use Status: Never used Tobacco e-Cigarette/Vaping Use: Never Used Second Hand Smoke Exposure: No service: No Current occupational status: employed Current occupational exposures/hazards: No Cognitive needs: No Hearing needs: No Vision needs: No Questionnaire PHQ-9 Over the last 2 weeks, how often have you been bothered by any of the following problems? 1. Little interest or pleasure in doing things: not at all 2. Feeling down, depressed, or hopeless: not at all 3. Trouble falling or staying asleep, or sleeping too much: not at all 4. Feeling tired or having little energy: not at all 5. Poor appetite or overeating: not at all 6. Feeling bad about yourself - or that you are a failure or have let yourself or your family down: not at all 7. Trouble concentrating on things, such as reading the newspaper or watching television: not at all 8. Moving or speaking so slowly that other people could have noticed. Or the opposite - being so fidgety or restless that you have been moving around a lot more than usual: not at all 9. Thoughts that you would be better off or of hurting yourself in some way: not at all Total score: 0 Depression Screening Interpretation: Negative Depression Screening Done: Yes 07195 - PHQ-9 Billing: Yes Source: Developed by Drs. Quinton Young, Estelle Carrillo, Raimundo Hunter and colleagues, with an educational debby from [employer]. Thrive Questionnaire Date Thrive assessed: 01/01/25 I am a: Patient What is your living situation today?: I have a steady place to live Within the past 12 months, did the food you bought not last and you didn't have the money to get more?: Never true Within the past 12 months, did you worry whether your food would run out before you got money to buy more?: Never true Do you have trouble paying for medicines?: No Do you have trouble getting transportation to medical appointments?: No Do you have trouble paying your heating and electricity bill?: No Do you have trouble taking care of your child, family member or friend?: No Do you have trouble with day-to-day activities such as bathing, preparing meals, shopping, managing finances, etc.?: No Are you currently unemployed and looking for a job?: No Are you interested in more education?: No Please select the resources that you would like help with: None Currently or been in a relationship where the following occur: No concerns reported THRIVE Score: 0 AUDIT C Alcohol Use Questionnaire (AUDIT-C) 1. How often do you have a drink containing alcohol?: Never 3. How often do you have six or more drinks on one occasion?: Never Total Score: 0 ZENY-7 AMB Questionnaire ZENY-7 Date ZENY - 7 assessed: 01/03/25 Feeling nervous, anxious, or on edge: 0 = Not at all Not being able to stop or control worryin = Not at all Worrying too much about different things: 0 = Not at all Trouble relaxin = Not at all Being so restless that it is hard to sit still: 0 = Not at all Becoming easily annoyed or irritable: 0 = Not at all Feeling afraid as if something awful might happen: 0 = Not at all Total ZENY-7 score (0-4 normal; 5-9 mild; 10-14 moderate; 15-21 severe): 0 Source: Developed by Drs. Quinton Young, Estelle Carrillo, Raimundo Hunter and colleagues, with an educational debby from [employer]. ZENY-7 Assessment Billing ZENY-7 Assessment Tool: ZENY-7 Assessment 54404 Physical exam (Primary Care) Vital Signs: Last Vital Signs Temp 97.0 F 01/03/25 13:09 Pulse 98 01/03/25 13:09 BP 134/70 01/03/25 13:09 Pulse Ox 96 01/03/25 13:09 Oxygen Delivery Method Room Air 01/03/25 13:09 BMI result Body Mass Index 38.0 Tobacco/Smoking Status: Tobacco use Status Tobacco use date assessed 01/03/25 01/03/25 13:13 Patient Tobacco Use Status Never used Tobacco 01/03/25 13:13 e-Cigarette/Vaping Use Never Used 01/03/25 13:13 PHQ-9: PHQ-9 Score PHQ-9: Total score 0 01/03/25 13:23 Depression Screening Interpretation: Negative Thrive Assessment: Date of Thrive Assessment Date Thrive assessed 01/01/25 01/03/25 13:13 Currently or been in a relationship where the following occur: No concerns reported Const General: alert; No acute distress Eyes Conjunctivae: conjunctivae normal Resp Auscultation: clear to auscultation bilaterally Cardio Rate: regular rate Rhythm: regular rhythm GI Inspection: Yes normal to inspection Extrem General: Yes normal to inspection and No edema Coding Level of Care Code Est Pt Level 4 (08983) Complex EM visit Add On G2211 Diagnoses Hypertension I10 Hypercholesterolemia E78.00 Obesity (BMI 30-39.9) E66.9 Obstructive sleep apnea hypopnea, severe G47.33 Additional Codes ZENY-7 Assessment Billing - ZENY-7 Assessment Tool: ZENY-7 Assessment 95517 ([id number]) PHQ-9 - 39083 - PHQ-9 Billing: Yes ([id number]) Assessment & Plan Assessment & Plan (1) Hypertension: Code(s): I10 - Essential (primary) hypertension Category: Medical Plan: Continue with blood pressure medication. Decrease salt intake and exercise on metoprolol 25 mg once a day (2) Hypercholesterolemia: Code(s): E78.00 - Pure hypercholesterolemia, unspecified Category: Medical Plan: Avoid fried foods, chicken skin, eggs, butter margarine, pastries and meat. Be it pork or beef they have a lot of cholesterol LDL goal of less than 130 and triglyceride of less than 150 on simvastatin 5 mg at bedtime (3) Obesity (BMI 30-39.9): Code(s): E66.9 - Obesity, unspecified Category: Medical Plan: Diet and exercise (4) Obstructive sleep apnea hypopnea, severe: Comment: On the CPAP and uses Q night > 4 hours and benefits from this Code(s): G47.33 - Obstructive sleep apnea (adult) (pediatric) Category: Medical Plan: Continue to use the CPAP more than 4 hours a night and benefits from this. Plan History of Present Illness The patient is a 64-year-old male presenting for a follow-up visit. The patient has a history of obstructive sleep apnea and continues to use CPAP therapy for more than 4 hours a night, which he finds beneficial. However, he has not used the CPAP for about a month due to travel and plans to resume its use. The patient has hypercholesterolemia, with a recent cholesterol test in August 2024 showing an LDL level of 123 mg/dL and triglycerides at 105 mg/dL. He is currently on simvastatin 5 mg at bedtime, with a goal to maintain LDL below 130 mg/dL and triglycerides below 150 mg/dL. The patient has a history of hypertension and is on metoprolol 25 mg once daily for blood pressure management. His blood pressure was reviewed during the visit, and he is advised to continue his current medication regimen. Preventative care measures include a colonoscopy performed in August 2022, and he is advised to maintain regular screenings. Health Maintenance - Colonoscopy performed in August 2022 - Discussion about shingles vaccination - Discussion about flu vaccination Social History - Exercise: Encouraged to maintain physical activity for circulation and overall health. - Travel: Recently traveled to [place], impacting CPAP usage. Review of Systems - Respiratory: Denies cough, reports regular CPAP use with benefits. - Gastrointestinal: Reports normal bowel movements. - Genitourinary: Reports nocturia once per night, denies dysuria. - Neurological: Denies vision changes, reports stable vision since last check-up. Physical Exam Results - Labs: Blood work in February 2024 showed normal blood count, electrolytes, renal and liver function, and normal blood sugar. - Labs: Cholesterol test in August 2024 showed LDL of 123 mg/dL and triglycerides of 105 mg/dL. Plan Patient was informed and verbally consented to the use of an ambient scribe for clinic note documentation during this visit. 1. Obstructive Sleep Apnea The patient is advised to continue using CPAP therapy for more than 4 hours a night, as it provides significant benefits. He plans to resume regular use after a recent lapse due to travel. 2. Hypercholesterolemia The patient is on simvastatin 5 mg at bedtime, aiming to maintain LDL below 130 mg/dL and triglycerides below 150 mg/dL. Regular monitoring of lipid levels is recommended. 3. Hypertension The patient is on metoprolol 25 mg once daily for blood pressure management. He is advised to continue his current medication regimen and monitor blood pressure regularly. 4. Preventative Care The patient underwent a colonoscopy in August 2022 and is advised to maintain regular screenings. Discussion about shingles and flu vaccinations was conducted, highlighting their importance in preventative care. Discussion Notes During the visit, I discussed the importance of continuing CPAP therapy for obstructive sleep apnea and the benefits it provides. We reviewed the patient's cholesterol levels and the current medication regimen with simvastatin to manage hypercholesterolemia. The patient was advised to maintain regular blood pressure monitoring while on metoprolol. Preventative care discussions included the significance of regular colonoscopies and vaccinations for shingles and flu. Patient Instructions - Continue using CPAP therapy for more than 4 hours each night. - Take simvastatin 5 mg at bedtime to manage cholesterol levels. - Take metoprolol 25 mg once daily and monitor blood pressure regularly. - Schedule and attend regular colonoscopy screenings. - Consider receiving shingles and flu vaccinations. Orders: Orders Complete Blood Count Auto Diff 2 Months E78.00 - Pure hypercholesterolemia, unspecified Comprehensive Met. Panel 2 Months E78.00 - Pure hypercholesterolemia, unspecified Thyroid Stimulating Hormone 2 Months E78.00 - Pure hypercholesterolemia, unspecified Lipid Panel 2 Months E78.00 - Pure hypercholesterolemia, unspecified Prostate Specific Antigen Scr 2 Months E78.00 - Pure hypercholesterolemia, unspecified Magnesium 2 Months E78.00 - Pure hypercholesterolemia, unspecified Free T4 (Free Thyroxine) 2 Months E78.00 - Pure hypercholesterolemia, unspecified Vitamin B12 and Folate 2 Months E78.00 - Pure hypercholesterolemia, unspecified Medications: Refilled ketorolac 10 mg PO Q6H PRN 20 tabs 3RF pain 5 days R10.9 - Unspecified abdominal pain simvastatin 5 mg PO BEDTIME 90 tabs 3RF 90 days E78.00 - Pure hypercholesterolemia, unspecified metoprolol succinate ER 25 mg PO DAILY 90 tabs 3RF 90 days I10 - Essential (primary) hypertension
--- OUTSIDE RECORDS SUMMARY | 2025-01-03 15:32 | XMS_ITS | Patient Health Record ---
Author Organization [facility] Address [address] [place] [id number] Care Team Providers Care Defensive Secondary Coach Name Role Phone Alejandro Villarreal MD Primary Care Provider Quinton Clement [phone] Allergies No Known Allergies Reason For Referral No Information Medications Medication SIG (Take, Route, Frequency, Duration) Notes Start Date End Date Status Ketorolac Tromethamine 10 MG 1 tablet with food or milk as needed Orally every 6 hrs/ prn Active Atorvastatin Calcium 20 MG Oral for 30 Active Valsartan 40 MG Oral for 30 Ac tive Problems Problem Type SNOMED Code ICD Code Onset Dates Problem Status W/U Status Risk Notes Problem [id number] Encounter for screening for malignant neoplasm of colon (Z12.11) Active confirmed Problem Diverticular disease of colon (506740515) Diverticulosis of large intestine without perforation or abscess without bleeding (K57.30) Active confirmed Problem Screening for malignant neoplasm of rectum (575253540) Encounter for screening for malignant neoplasm of rectum (Z12.12) Active confirmed Problem 59324229 Preprocedural examination (Z01.818) Active confirmed Problem 369521552 Family history o f colon cancer (Z80.0) Active confirmed Plan Of Treatment Pending Test Test Name Order Date Pathology 09/04/2022 Future Test Test Name Order Date COLONOSCOPY 03/06/2016 COLONOSCOPY 07/02/2022 Insurance Providers Payer Name Payer Address Payer Phone Subscriber Number Group Number Insured Name Patient Relationship to Insured Coverage Start Date Coverage End Date [facility] [address] [address] [place] [address] [phone] [id number] WHE[employer], [id number] Self - patient is the insured Medical (General) History Medical History History ICD Code Denies MD,DM,CVA,Lung disease,renal dise ase Hypercholesterolemia Sleep apnea-uses a CPAP Hypertension Negative screening colonoscopy in 05/2016 Surgical History Surgery Date(Month/Year)
--- OUTSIDE RECORDS SUMMARY | 2025-01-03 15:32 | XMS_ITS | Patient Health Record ---
[facility] Address [address] [place] [address] Care Team Providers Care Workforce Management Consultant Name Role Phone Alejandro Villarreal Primary Care Provider Buzz Martinez Unavailable [phone] Reason For Referral No Information Medications Medication SIG (Take, Route, Frequency, Duration) Notes Start Date End Date Status Terbinafine Active Simvastatin 5 MG 2 tablets in the bree munri Orally Once a day Active Metoprolol Succinate [...] Are you an other tobacco user? No Plan Of Treatment No Information Insurance Providers Payer Name Payer Address Payer Phone Subscriber Number Group Number Insured Name Patient Relationship to Insured Coverage Start Date Coverage End Date [facility] [address] [place] [address] [phone] [id number] Daryl Cornell Self - patient is the insured Medical (General) History Medical History History ICD Code Hypertension Chicken pox
== END 2025-01-03 13:35 | disposition home or self-care (01) ==
LOC: HO.HMCH 13:08
PROVIDERS: PCP Internal Medicine; Visit Provider Internal Medicine
DX: I10 Essential (primary) hypertension (principal); E78.00 Pure hypercholesterolemia, unspecified; E66.9 Obesity, unspecified; Z68.38 Body mass index [BMI] 38.0-38.9, adult; G47.33 Obstructive sleep apnea (adult) (pediatric)

== ENCOUNTER → 2025-01-03 13:07 | Outpatient (BNVA) | payer BC, OTHER, SELFPAY | PROVIDERS: PCP Internal Medicine; Visit Provider Internal Medicine | DX: I10 Essential (primary) hypertension (principal); E78.00 Pure hypercholesterolemia, unspecified; E66.9 Obesity, unspecified; G47.33 Obstructive sleep apnea (adult) (pediatric); R10.9 Unspecified abdominal pain; Z68.38 Body mass index [BMI] 38.0-38.9, adult; Z99.89 Dependence on other enabling machines and devices | CPT/HCPCS: 96127 ==

== ENCOUNTER 2025-03-30 05:58 | Outpatient (REF) | payer BC, OTHER, SELFPAY ==
--- OUTSIDE RECORDS SUMMARY | 2023-11-24 09:00 | XMS_ITS ---
Author Organization [facility] Address [address] [place] [address] Care Team Providers Care Phlebotomy Services Technician Name Role Phone Alejandro Villarreal Primary Care Provider UnavailBuzz Adair Unavailable [phone] Sherrie Portillo Unavailable [phone] REASON FOR VISIT SEEN SOONER Medications Medication SIG (Take, Route, Fr equency, Duration) Notes Start Date End Date Status Terbinafine Active Metoprolol Succinate Active Simvastatin Active Ketorolac Tromethamine Active Social History Tobacco Use: Social History Observation Description Date Details (start date - stop date) Never Smoker NA - NA Tobacco Use/Smoking Question Answer Notes Are you a: nonsmoker Additional Findings: Tobacco Non-User Current no n-smoker Alcohol Screen Question Answer Notes Did you have a drink containing alcohol in the p ast year? No Points 0 Interpretation Negative Tobacco use other than smoking: Question Answer Notes Are you an other tobacco user? No Vital Signs Height 5 ft 5 in in 11/24/2023 Weight 216 lbs 11/24/2023 BMI 35.94 kg/m2 11/24/2023 Encounters Encounter Location Date Provider Diagnosis [address] [address] 11/24/2023 Sherrie Portillo Plan Of Treatment No Information Progress Notes * Daryl CORNELL MDOB: 3 (64 yo M)Acc No.[id number]:11/24/2023 Progress Notes Patient: Lucille SCHNEIDERLESDaryl Provider: Ji Portillo DPM :1960 A ge:63 Y S ex:Male Date:11/24/2023 Address:[address] [place] [address], [place] Pcp:Alejandro Villarreal Subjective: * Chief Complaints: * 1 . SEEN SOONER. * ROS: G eneral/Constitutional: Nausea d enies. V omiting d enies. H anand Thirst d enies. L oss appetite d enies. C hills d enies. F atigue d enies.?Fever d enies. N ight Sweats d enies. U nexplained weight loss d enies. U nexplained weight gain d enies. H EENTM: Dentures d enies. D izziness d enies. G lasses/contacts a dmits. R etinopathy d enies. B lurred/double vision d enies. T MJ?denies. D ischarge/drainage d enies. I mplants d enies. S ore throat d enies. D ental implants d enies. H naif of hearing d enies. D ifficulty chewing/swallowing/speaking d enies. N ose bleeds d enies. S ore mouth d enies. ? R espiratory: On Oxygen d enies. P neumonia/pleurisy d enies.?Bronchitis d enies. E mphysema d enies. C oughing d enies. C ough blood?denies. S hortness of breath d enies. W heezing d enies. C ardiovascular: Pacemaker d enies. M CHEMICALS FERMENTATION OPERATOR d enies. W PW d enies. C HF d enies. H eart attack d enies. S eptal defect d enies. R apid beat d enies. C hest pain d enies. A trial Fib. d enies. M urmur/Palpitations d enies. G astrointestinal: Hemorrhoids d enies. S tomach/Abdominal pain d enies. D ark blood stool d enies. I rritable bowel d enies. C onstipation d enies. D iarrhea d enies. H ematology: Swelling d enies. C lots d enies. V aricose Veins d enies. B ruising d enies. B leeding problem d enies. G enitourinary: Blood urine d enies. F requent/Painfu/urination/bladder control d enies. K idney stones d enies. I nfection (UTI) d enies. N ephropathy d enies. s ex trans dis (STD) d enies. P rostate d enies. M usculoskeletal: Hammertoes d enies. B unions d enies. B ack Pain a dmits. M uscle Cramps/ Resting d enies. M uscle cramps / walking d enies.?Generalized aches and pains d enies. W eakness d enies. I nteg.: Chappell d enies. S cars d enies. C orns/calluses?denies. I ngrown nails a dmits. P ainful nails d enies. O pen Sores d enies. R ashes d enies. N eurologic: Difficulty sleeping d enies. B rain disorder d enies. N umbness d enies. B alance trouble d enies. C onfusion d enies. F ainting/blackouts d enies. T ingling d enies. T remors d enies. * Medical History: H ypertension, Chicken pox. * Family History: M other: alive, diagnosed with Family history of arthritis, Unspecified essential hypertension. F ather: , diagnosed with Unspecified essential hypertension, Other malignant neoplasm of unspecified site. M aternal Grand Father: stroke. * Social History: T obacco Use: T obacco Use/Smoking A re you a: n onsmoker A dditional Findings: Tobacco Non-User C urrent non-smoker Tobacco use other than smoking A re you an other tobacco user? N o D rugs/Alcohol: D rugs H ave you used drugs other than those for medical reasons in the past 12 months? N o Alcohol Screen D id you have a drink containing alcohol in the past year? N o P oints 0 I nterpretation N egative M iscellaneous: C affeine: no. Children: yes, 1. Marital status: . 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 * Medications: T aking Metoprolol Succinate , Taking Simvastatin , Taking Ketorolac Tromethamine , Taking Terbinafine Objective: * Vitals: H t: 5 ft 5 in, Wt:216, BMI:35.94, Shoe size: 8.5, Ht-cm: 165.1 cm, Wt-k.98 kg. Assessment: Plan: * Treatment: * Images: * The named appointment provid er may or may not be the originator of this progress note, and it is not deemed complete until electronically signed by the appointment provider. Sign off status: Pending * Provider: Ji Portillo DPM Date: 0 11/24/2023 Generated for Kelsi jaimes/Nadine/La on: 06:00 AM EST
--- OUTSIDE RECORDS SUMMARY | 2025-03-30 06:01 | XMS_ITS | Patient Health Record ---
Author Organization [facility] Address [address] [place] [id number] Care Team Providers Care Maths Tutor Name Role Phone Alejandro Villarreal MD Primary Care Provider Quinton Clement [phone] Allergies No Known Allergies Reason For Referral No Information Medications Medication SIG (Take, Route, Frequency, Duration) Notes Start Date End Date Status Ketorolac Tromethamine 10 MG Tablet 1 tablet with food or milk as needed Orally every 6 hrs/ prn Active Atorvastatin Calcium 20 MG Tablet Oral; Duration: 30 Active Valsartan 40 MG Tablet Oral; Duration: 30 Active Social History Social History Additional Details Category Social Info Options Details Miscellaneous: Marital status: 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 alcohol Nonsmoker; no sig. alcohol Problems Problem Type SNOMED Code ICD Code Onset Dates Problem Status W/U Status Risk Notes Problem Screening for malignant neoplasm of colon (665540019) Encounter for screening for malignant neoplasm of colon (Z12.11) Active confirmed Problem Diverticular disease of colon (813682719) Diverticulosis of large intestine without perforation or abscess without bleeding (K57.30) Active confirmed Problem Screening for malignant neoplasm of rectum (174661548) Encounter for screening for malignant neoplasm of rectum (Z12.12) Active confirmed Problem Preprocedural examination (730177232710113) Preprocedural examination (Z01.818) Active confirmed Problem Family History of Cancer of Colon (Situation) (270569572) Family history of colon cancer (Z80.0) Active confirmed Plan Of Treatment Pending Test Test Name Order Date Pathology 09/04/2022 Future Test Test Name Order Date COLONOSCOPY 03/06/2016 COLONOSCOPY 07/02/2022 Insurance Providers Payer Name Payer Address Payer Phone Subscriber Number Group Number Insured Name Patient Relationship to Insured Coverage Start Date Coverage End Date [facility] [address] [place] [address] [id number] WHEELER Self - patient is the insured Medical (General) History Medical History History ICD Code Denies [place],DM,CVA,Lung disease,renal dise ase Hypercholesterolemia Sleep apnea-uses a CPAP Hypertension Negative screening colonoscopy in 05/2016 Surgical History Surgery Date(Month/Year)
--- OUTSIDE RECORDS SUMMARY | 2025-03-30 06:01 | XMS_ITS | Patient Health Record ---
[facility] Address [address] [place] [address] Care Team Providers Care Reach Lift Truck Driver Name Role Phone Alejandro Villarreal Primary Care Provider Buzz Martinez Unavailable [phone] Reason For Referral No Information Medications Medication [...] Insured Coverage Start Date Coverage End Date [facility] [address] [place] [address] [id number] Daryl Cornell Self - patient is the insured Medical (General) History Medical History History ICD Code Hypertension Chicken pox
[2025-03-30 06:25] LABS: MANUAL DIFF FLAG NO
[2025-03-30 07:21] LABS: Hematocrit 43.0 % (42.0-52.0); Hemoglobin 14.7 g/dl (14.0-18.0); Imm Gran Abs Auto 0.02 X10*3/uL (0.00-0.03); Imm Gran Pct Auto 0.4 % (0.0-0.4); Lymphocytes Absolute Auto 1.1 X10*3/uL (1.2-4.9); Mean Corpuscular HGB Conc 34.2 g/dl (31.0-36.0); Mean Corpuscular Hemoglobin 31.8 pg (27.0-33.0); Mean Corpuscular Volume 93.1 fL (80.0-98.0); NRBC Abs Auto 0.000 X10*3/uL (0.0-0.012); NRBC Pct Auto 0.0 /100WBC (0.0-0.2); Platelet Count 233 X10*3/uL (160-400); Red Blood Count 4.62 X10*6/uL (4.60-5.80); White Blood Count 5.7 X10*3/uL (4.8-10.8)
[2025-03-30 07:52] LABS: Alanine Aminotransferase 39 U/L (0-40); Albumin Level 4.0 g/dL (3.5-5.0); Alkaline Phosphatase 88 U/L (39-117); Anion Gap 10 (12-20); Aspartate Amino Transferase 27 U/L (5-37); Blood Urea Nitrogen 18 mg/dL (9-16); Calcium 8.7 mg/dL (8.4-10.2); Carbon Dioxide 27 mmol/L (22-29); Chloride 107 mmol/L (96-108); Cholesterol 179 mg/dL (<200); Estimated Glomerular Filt Rate > 60; HDL Cholesterol 39 mg/dL (>40); Magnesium 2.2 mg/dL (1.6-2.6); Potassium 3.8 mmol/L (3.3-5.1); Sodium 140 mmol/L (135-145); Total Protein 7.1 g/dL (6.5-8.0); Triglycerides 84 mg/dL (<150)
[2025-03-30 08:17] LABS: Free T4 (Free Thyroxine) 0.87 ng/dL (0.71-1.85); Thyroid Stimulating Hormone 1.76 uIU/mL (0.32-4.0)
[2025-03-30 08:18] LABS: Folate 10.1 ng/mL (> or = 4.0); Vitamin B12 457 pg/mL (200-900)
== END 2025-03-30 05:59 | disposition home or self-care (01) ==
LOC: HO.LAB 05:58
PROVIDERS: PCP Internal Medicine; Visit Provider Internal Medicine
DX: Z12.5 Encounter for screening for malignant neoplasm of prostate (principal); E78.00 Pure hypercholesterolemia, unspecified
CPT/HCPCS: 36415; 80053; 80061; 82607; 82746; 83735; 84153; 84439; 84443; 85025